=== PATIENT | male | born 1980 | race Caucasian/White ===

== ENCOUNTER 2025-03-26 09:31 | Outpatient (CLI) | payer MEDICAID, SELFPAY ==
--- OUTSIDE RECORDS SUMMARY | 2025-02-05 13:00 | XMS_ITS | Encounter Summary ---
Author Organization [facility] Address [address] [place] [address] Care Team Providers Care Inspector Assembly Name Role Phone Anthony Linares MD Primary Care Provider [phone] Reason for Visit * Reason Comments Med Refill Encounter Details Date Type Department Care Team (Late st Contact Info) Description 02/05/2025 1:00 PM EDT Office Visit [facility] [address] [place] [address] [place] [address] Anthony Linares MD [address] [place] [address] [place] [address] Type 2 diabetes mellitus with microalbuminuria, without long-term current use of insulin (Primary Dx); Primary hypertension; Chronic renal failure, stage 3b; Cigarette smoker; Mixed hyperlipidemia; Overweight (BMI 25.0-29.9); Folate deficiency; Other dietary vitamin B12 deficiency anemia; Recurrent major depressive disorder, in partial remission; Seasonal allergic rhinitis due to pollen; Encounter for general adult medical examination with abnormal findings Social History Tobacco Use Types Packs/Day Years Used Date Smoking Tobacco: Former Cigarettes 1 - 01/30/2018 Smokeless Tobacco: Never Tobacco Cessation:Counseling Given: No Alcohol Use Standard Drinks/Week Comments Never 0 (1 standard drink = 0.6 oz pur e alcohol) PHQ-2 Answer Date Recorded Retired PHQ-9: Brief Depression Severity Measure Score 0 08/03/2023 PHQ-2 Answer Date Recorded Patient Health Questionnaire-2 Score 0 02/05/2025 Sex and Gender Information Value Date Recorded Sex Assigned at Not on file Legal Sex Male 5:23 PM EDT Gender Identity Not on file Sexual Orientation Not on file documented as of this encounter Last Filed Vital Signs Vital Sign Reading Time Taken Comments Blood Pressure 116/82 02/05/2025 1:02 PM EDT Pulse 66 02/05/2025 1:02 PM EDT Temperature 36.8 C (98.2 F) 02/05/2025 1:02 PM EDT Respiratory Rate - - Oxygen Saturation 98% 02/05/2025 1:02 PM EDT Inhaled Oxygen Concentration - - Weight 97.1 kg (214 lb) 02/05/2025 1:02 PM EDT Height 185.4 cm (6' 1 ) 02/05/2025 1:02 PM EDT Body Mass Index 28.23 02/05/2025 1:02 PM EDT documented in this encounter Functional Status documented as of this encounter Progress Notes * Anthony Linares MD - 02/05/2025 1:21 PM EDTAssociated Problem(s): Type 2 diabetes mellitus with microalbuminuria, without long-term current use of insulin Hemoglobin A1c through his plastic parts fabricator on 11/21/2024 at at 7.0% which was improved compared toprevious 7.6 on 08/07/2024, 02/07/2024 at 6.6, prior to that at endocrinology clinic 09/21/2023 at 5.7%, with mi 08/03/2023 at 6.3%, with endocrinology on 03/19/2023 with hemoglobin A1c 5.7% 09/18/2022 with hemoglobin A1c of 5.8%, repeated 11/02/2022 good at 6.1%. I discussed he could get comorbid benefit from his renal dysfunction and diabetes, and initiated on 08/03/2023 Jardiance 10 mg daily, and we stopped glipizide to 25 mg daily to avoid hypoglycemia. Keep regular follow-up with his endocrinology with last appointment 11/21/2024 and planned May 2025 6-month follow-up visit. Monitor feetdaily, he is due for diabetic retinopathy evaluation, he plans to schedule at soonest convenience. * Anthony Linares MD - 02/05/2025 1:20 PM EDTAssociated Problem(s): Seasonal allergic rhinitis due to pollen Seasonal pattern, with responsiveness [id number] antihistamine and nasal steroid historically. With some previous breakthrough symptoms we had discussed adding montelukast but he declined the need, still some spring triggers as of 02/05/2025 but he feels he is doing well with antihistamine andnasal steroid additional benefit of saline spray, nasal flushing, consider [place] pot. Advise concerns. * Anthony Linares MD - 02/05/2025 1:19 PM EDTAssociated Problem(s): Recurrent major depressive disorder, in partial remission Longstanding pattern for which he previously followed with nurse practitioner Usha Boucher on regimen of medication, including Seroquel with benefit. * Anthony Linares MD - 02/05/2025 1:19 PM EDTAssociated Problem(s): Primary hypertension Current losartan/HCTZ 50/12.5 mg daily, metoprolol 25 mg twice daily. With bradycardia noted previously, metoprolol decreased to 25 mg at 1/2 tablet twice daily deviously. Of note, previous amlodipine 5 mg discontinued November 2017. Monitor blood pressure. EKG nonconcerning and normal 08/07/2024, unchanged compared to 08/03/2023, 05/05/2022. Continue monitoring blood pressure more regularly. No new concerns as of 02/05/2025. * Anthony Linares MD - 02/05/2025 1:19 PM EDTAssociated Problem(s): Overweight (BMI 25.0-29.9) BMI in the 28 range, ongoing recommendations of benefits healthy diet, exercise and weight loss formultiple medical comorbidities. * Anthony Linares MD - 02/05/2025 1:19 PM EDTAssociated Problem(s): Other dietary vitamin B12 deficiency anemia Vitamin B12 level low with blood work 02/01/2023 at 120 with lower limit of normal 232, patient presenting replacement in 02/07/2024 normalized at 623. Recheck pending with blood work 02/05/2025, management per results. * Anthony Linares MD - 02/05/2025 1:18 PM EDTAssociated Problem(s): Mixed hyperlipidemia 02/07/2024 total cholesterol 132, triglycerides 317, HDL 25, LDL 57. Comparison 02/01/2023 total cholesterol 112, triglycerides 275, HDL 23, LDL 46, 02/11/2022 total cholesterol 107, triglycerides 144, HDL 27, LDL 51, 01/27/2021 with total cholesterol 147, triglycerides 262, HDL 26, LDL 69, 05/14/2017 with total cholesterol 155, triglycerides 306, HDL 31, LDL 63. Notable was admitted to the hospital with LDL greater than 400 and triglycerides greater than 800 on admission in November 2013. Continue atorvastatin 80 mg daily, fenofibrate 145 mg daily. Continue healthy diet and exercise, weight loss. Recheck with cholesterol 02/05/2025, management per results. * Anthony Linares MD - 02/05/2025 1:17 PM EDTAssociated Problem(s): Folate deficiency History of same. Normal folate with blood work 02/01/2023 at greater than 20, continues normal at 15on 02/07/2024. Monitor with blood work 02/05/2025 * Anthony Linares MD - 02/05/2025 1:17 PM EDTAssociated Problem(s): Cigarette smoker Ongoing smoking, but continues at only 1-2 cigarettes/day, with use of Chantix as of late 2022 withequivocal benefit. He continues smoking the same and he understands ongoing risk with even low level smoking. If he desires Chantix, patches or Wellbutrin to help cessation I will be happy to provideat convenience. * Anthony Linares MD - 02/05/2025 1:17 PM EDTAssociated Problem(s): Chronic renal failure, stage 3b Follows with nephrology historically not seen for at least a couple years. 02/07/2024 blood work with worsening creatinine 2.00, GFR 42, again verified as elevated 08/07/2024 with creatinine 2.03 and GFR 41. As he is still not seeing [facility] I went ahead and referred and he has now pending follow-up visit with Dr. Donis Way on 03/09/2025. Devious creatinines 02/01/2023 creatinine 1.63, GFR 54, previous creatinine at 1.4 and GFR 60 on 02/11/2022. Initiation of Jardiance 10 mg daily as of 08/03/2023 for comorbid benefit of diabetes and also renal dysfunction. Caution renal toxic medications. Will check kidney function again with his blood work 02/05/2025, management per results * Anthony Linares MD - 02/05/2025 1:00 PM EDT Images from the original note were not included. Follow Up Office Visit Date: 02/05/2025 Patient Name: Darien Jean : 1980 Chief Complaint: Chief Complaint Patient presents with Med Refill History of Present Illness: Darien Jean is a 44 y.o. male who is here today to follow up with medical problems. In the interim, couple months ago on 11/21/2024 he saw his plastic parts fabricator at where he had a hemoglobin A1c improved to 7.0% he continued his regimen of medicine unchanged with plan to follow-up 6 months. Checking his sugar since then he runs in the low to mid 100s when he checks which is not daily. Regarding cholesterol, taking medicine as prescribed. Try to make efforts eat healthy be active and is down a little bit better the last few months. Blood pressure checked infrequently when he does check it is in the 110s over 70s. No lightheadedness or dizziness. Still smoking 1 or 2 cigarettes a day understanding benefits of full cessation and he will consider. He has pending follow-up appointment with nephrology at on 03/09/2025. He continues taking folate and vitamin [id number].. Subjective Review of Systems: Review of Systems I have reviewed the patients family history, social history, past medical history, past surgical history and have updated it as appropriate. Medications: Current Outpatient Medications: atorvastatin (LIPITOR) 80 MG tablet, Take 1 tablet by mouth once daily, Disp: 90 tablet, Rfl: 3 cetirizine (zyrTEC) 10 MG tablet, Take 1 tablet by mouth once daily, Disp: 30 tablet, Rfl: 0 Cholecalciferol (Vitamin D) 50 MCG (2000 UT) capsule, Take 1 capsule by mouth once daily, Disp: 30 capsule, Rfl: 3 clopidogrel (PLAVIX) 75 MG tablet, Take 1 tablet by mouth once daily, Disp: 90 tablet, Rfl: 0 Cobalamin Combinations (Vitamin D60-Xtyqh Acid) 500-400 MCG tablet, Take 2 tablets by mouth Daily.,Disp: 60 tablet, Rfl: 3 empagliflozin (Jardiance) 10 MG tablet tablet, Take 1 tablet by mouth once daily, Disp: 90 tablet, Rfl: 1 fenofibrate (TRICOR) 145 MG tablet, Take 1 tablet by mouth once daily, Disp: 90 tablet, Rfl: 2 folic acid (FOLVITE) 400 MCG tablet, Take 1 tablet by mouth once daily, Disp: 60 tablet, Rfl: 2 losartan-hydrochlorothiazide (HYZAAR) 100-25 MG per tablet, Take 1 tablet by mouth once daily, Disp: 90 tablet, Rfl: 3 metFORMIN ER (GLUCOPHAGE-XR) 500 MG 24 hr tablet, Take 2 tablets by mouth 2 (Two) Times a Day., Disp: , Rfl: metoprolol tartrate (LOPRESSOR) 25 MG tablet, TAKE 1 TABLET BY MOUTH TWICE DAILY; APPOINTMENT REQUIRED FOR FUTURE REFILLS, Disp: 180 tablet, Rfl: 1 vitamin B-12 (CYANOCOBALAMIN) 500 MCG tablet, Take 1 tablet by mouth once daily, Disp: 20 tablet, Rfl: 3 Allergies: Allergies Allergen Reactions Loratadine Unknown (See Comments) loopy Objective Physical Exam: Please see above Vital Signs: Vitals: 02/05/25 1302 BP: 116/82 BP Location: Right arm Patient Position: Sitting Cuff Size: Adult Pulse: 66 Temp: 98.2 ??F (36.8 ??C) TempSrc: Temporal SpO2: 98% Weight: 97.1 kg (214 lb) Height: 185.4 cm (73 ) PainSc: 0-No pain Facility age limit for growth %antoni is 20 years. Body mass index is 28.23 kg/m??. Physical Exam Constitutional: General: He is not in acute distress. Appearance: Normal appearance. He is not ill-appearing, toxic-appearing or diaphoretic. HENT: Right Ear: Ear canal and external ear normal. Left Ear: Ear canal and external ear normal. Ears: Comments: Mild fluid behind the TMs bilaterally, otherwise clear Nose: Rhinorrhea present. Comments: Mild clear rhinorrhea, pale mucosa Mouth/Throat: Mouth: Mucous membranes are moist. Pharynx: Oropharynx is clear. No oropharyngeal exudate or posterior oropharyngeal erythema. Neck: Vascular: No carotid bruit. Comments: No thyroid enlargement, no thyroid nodules Cardiovascular: Rate and Rhythm: Normal rate and regular rhythm. Pulses: Normal pulses. Heart sounds: Normal heart sounds. No murmur heard. No friction rub. No gallop. Pulmonary: Effort: Pulmonary effort is normal. No respiratory distress. Breath sounds: Normal breath sounds. No stridor. No wheezing. Abdominal: General: Abdomen is flat. Bowel sounds are normal. There is no distension. Palpations: Abdomen is soft. Tenderness: There is no abdominal tenderness. There is no guarding or rebound. Musculoskeletal: Cervical back: Neck supple. No tenderness. Right lower leg: No edema. Left lower leg: No edema. Lymphadenopathy: Cervical: No cervical adenopathy. Skin: General: Skin is warm and dry. Capillary Refill: Capillary refill takes less than 2 seconds. Findings: No rash. Neurological: General: No focal deficit present. Mental Status: He is alert and oriented to person, place, and time. Mental status is at baseline. Psychiatric: Mood and Affect: Mood normal. Behavior: Behavior normal. Thought Content: Thought content normal. Procedures Results: Labs: Hemoglobin A1C Date Value Ref Range Status 11/21/2024 7.0 <5.7% Non-Diabetic % Final 03/13/2022 5.8 Final TSH Date Value Ref Range Status 02/07/2024 3.550 0.450 - 4.500 uIU/mL Final Imaging: No valid procedures specified. Patient's (Body mass index is 28.23 kg/m??.) indicates that they are overweight (BMI 25-29.9) with health related conditions that include hypertension, diabetes mellitus, and dyslipidemias . Weight is improving with lifestyle modifications. BMI is is above average; BMI management plan is completed.We discussed low calorie, low carb based diet program, portion control, increasing exercise, and joining a fitness center or start home based exercise program. Smoking Cessation: 3-10 mintues spent counseling Will try to cut down Vaccine Counseling: Assessment / Plan Assessment/Plan: Diagnoses and all orders for this visit: 1. Type 2 diabetes mellitus with microalbuminuria, without long-term current use of insulin (Primary) Assessment & Plan: Hemoglobin A1c through his plastic parts fabricator on 11/21/2024 at at 7.0% which was improved compared toprevious 7.6 on 08/07/2024, 02/07/2024 at 6.6, prior to that at endocrinology clinic 09/21/2023 at 5.7%, with mi 08/03/2023 at 6.3%, with endocrinology on 03/19/2023 with hemoglobin A1c 5.7% 09/18/2022 with hemoglobin A1c of 5.8%, repeated 11/02/2022 good at 6.1%. I discussed he could get comorbid benefit from his renal dysfunction and diabetes, and initiated on 08/03/2023 Jardiance 10 mg daily, and we stopped glipizide to 25 mg daily to avoid hypoglycemia. Keep regular follow-up with his endocrinology with last appointment 11/21/2024 and planned May 2025 6-month follow-up visit. Monitor feetdaily, he is due for diabetic retinopathy evaluation, he plans to schedule at soonest convenience. Orders: - Microalbumin / Creatinine Urine Ratio - Urine, Clean Catch; Future - Microalbumin / Creatinine Urine Ratio - Urine, Clean Catch 2. Primary hypertension Assessment & Plan: Current losartan/HCTZ 50/12.5 mg daily, metoprolol 25 mg twice daily. With bradycardia noted previously, metoprolol decreased to 25 mg at 1/2 tablet twice daily deviously. Of note, previous amlodipine 5 mg discontinued November 2017. Monitor blood pressure. EKG nonconcerning and normal 08/07/2024, unchanged compared to 08/03/2023, 05/05/2022. Continue monitoring blood pressure more regularly. No new concerns as of 02/05/2025. 3. Chronic renal failure, stage 3b Assessment & Plan: Follows with [facility] historically not seen for at least a couple years. 02/07/2024 blood work with worsening creatinine 2.00, GFR 42, again verified as elevated 08/07/2024 with creatinine 2.03 and GFR 41. As he is still not seeing [facility] I went ahead and referred and he has now pending follow-up visit with Dr. Donis Way on 03/09/2025. Devious creatinines 02/01/2023 creatinine 1.63, GFR 54, previous creatinine at 1.4 and GFR 60 on 02/11/2022. Initiation of Jardiance 10 mg daily as of 08/03/2023 for comorbid benefit of diabetes and also renal dysfunction. Caution renal toxic medications. Will check kidney function again with his blood work 02/05/2025, management per results 4. Cigarette smoker Assessment & Plan: Ongoing smoking, but continues at only 1-2 cigarettes/day, with use of Chantix as of late 2022 withequivocal benefit. He continues smoking the same and he understands ongoing risk with even low level smoking. If he desires Chantix, patches or Wellbutrin to help cessation I will be happy to provideat convenience. 5. Mixed hyperlipidemia Assessment & Plan: 02/07/2024 total cholesterol 132, triglycerides 317, HDL 25, LDL 57. Comparison 02/01/2023 total cholesterol 112, triglycerides 275, HDL 23, LDL 46, 02/11/2022 total cholesterol 107, triglycerides 144, HDL 27, LDL 51, 01/27/2021 with total cholesterol 147, triglycerides 262, HDL 26, LDL 69, 05/14/2017 with total cholesterol 155, triglycerides 306, HDL 31, LDL 63. Notable was admitted to the hospital with LDL greater than 400 and triglycerides greater than 800 on admission in November 2013. Continue atorvastatin 80 mg daily, fenofibrate 145 mg daily. Continue healthy diet and exercise, weight loss. Recheck with cholesterol 02/05/2025, management per results. 6. Overweight (BMI 25.0-29.9) Assessment & Plan: BMI in the 28 range, ongoing recommendations of benefits healthy diet, exercise and weight loss formultiple medical comorbidities. 7. Folate deficiency Assessment & Plan: History of same. Normal folate with blood work 02/01/2023 at greater than 20, continues normal at 15on 02/07/2024. Monitor with blood work 02/05/2025 Orders: - Folate; Future - Folate 8. Other dietary vitamin B12 deficiency anemia Assessment & Plan: Vitamin B12 level low with blood work 02/01/2023 at 120 with lower limit of normal 232, patient presenting replacement in 02/07/2024 normalized at 623. Recheck pending with blood work 02/05/2025, management per results. Orders: - Vitamin B12; Future - Vitamin B12 9. Recurrent major depressive disorder, in partial remission Assessment & Plan: Longstanding pattern for which he previously followed with nurse practitioner Usha Boucher on regimen of medication, including Seroquel with benefit. 10. Seasonal allergic rhinitis due to pollen Assessment & Plan: Seasonal pattern, with responsiveness [id number] antihistamine and nasal steroid historically. With some previous breakthrough symptoms we had discussed adding montelukast but he declined the need, still some spring triggers as of 02/05/2025 but he feels he is doing well with antihistamine andnasal steroid additional benefit of saline spray, nasal flushing, consider [place] pot. Advise concerns. 11. Encounter for general adult medical examination with abnormal findings - CBC & Differential; Future - Comprehensive Metabolic Panel; Future - UA / M With / Rflx Culture([facility] ONLY) - Urine, Clean Catch - Lipid Panel; Future - TSH Rfx On Abnormal To Free T4; Future - TSH Rfx On Abnormal To Free T4 - Lipid Panel - Comprehensive Metabolic Panel - CBC & Differential Follow Up: Return in about 6 months (around 08/07/2025) for Annual physical. Anthony Linares MD [facility] * Joseline Lee MA - 02/05/2025 1:00 PM EDT Venipuncture Blood Specimen Collection Venipuncture performed in right arm by Joseline Lee MA with good hemostasis. Patient tolerated theprocedure well without complications. 02/05/25 Joseline Lee MA documented in this encounter Plan of Treatment Not on file documented as of this encounter Procedures Procedure Name Priority Date/Time Associated Diagnosis Comments TSH RFX ON ABNORMAL TO FREE T4 Routine 02/05/2025 1:16 PM EDT Encounter for general adult medical examination with abnormal findings UA/M W/RFLX CULTURE ([facility] ONLY) Routine 02/05/2025 1:16 PM EDT Encounter for general adult medical examination with abnormal findings ~MICROSCOPIC EXAMINATION Routine 02/05/2025 1:16 PM EDT MICROALBUMIN / CREATININE URINE RATIO Routine 02/05/2025 1:16 PM EDT Type 2 diabetes mellitus with microalbuminuria, without long-term current use of insulin CBC AND DIFFERENTIAL Routine 02/05/2025 1:16 PM EDT Encounter for general adult medical examination with abnormal findings FOLATE Routine 02/05/2025 1:16 PM EDT Folate deficiency VITAMIN B12 Routine 02/05/2025 1:16 PM EDT Other dietary vitamin B12 deficiency anemia LIPID PANEL Routine 02/05/2025 1:16 PM EDT Encounter for general adult medical examination with abnormal findings COMPREHENSIVE METABOLIC PANEL Routine 02/05/2025 1:16 PM EDT Encounter for general adult medical examination with abnormal findings documented in this encounter Results * Microscopic Examination - (02/05/2025 1:16 PM EDT) WBC, UA None seen 0 - 5 /hpf [facility] RBC, UA None seen 0 - 2 /hpf [facility] Epithelial Cells (non renal) None seen 0 - 10 /hpf [facility] Casts None seen None seen /lpf [facility] Bacteria, UA None seen None seen/Few [facility] 02/05/2025 1:16 PM EDT 02/05/2025 Comment:Urine Release to [facility] (AMBULATORY) - 02/06/2025 3:07 PM EDT Performed at: 01 - [address] [id number] Maintenance Shop Technician: Siva Valdivia PhD, Phone: [phone] us Anthony Linares MD URINE ORDERABLES Final Result Performing Organization Address City/[facility]/ZIP Co de Phone Number [facility] ([facility]) [address] [place] [address], [facility] [address] [place] [id number], * Vitamin B12 (02/05/2025 1:16 PM EDT) [facility] Vitamin B-12 736 232 - 1,245 pg/mL [facility] Blood 02/05/2025 1:1 6 PM EDT 02/05/2025 Comment:Blood Release to [facility] ([facility]) - 02/06/2025 1:07 PM EDT Performed at: [address] [place] [id number] Maintenance Shop Technician: Siva Valdivia PhD, Phone: [phone] us Anthony Linares MD LAB BLOOD ORDERABLES Final Resul t Performing Organization Address City/[facility]/ZIP Co de Phone Number [facility] (AMBULATORY) [address] [place] [address], [place] [phone] [facility] [address] [place] [address], * Folate (02/05/2025 1:16 PM EDT) [facility] Folate 16.2 >3.0 ng/mL [facility] Comment: A serum folate concentration of less than 3.1 ng/mL is considered to represent clinical deficiency. Blood 02/05/2025 1:16 PM EDT 02/05/2025 Comment:Blood Release to [facility] - 02/06/2025 1:07 PM EDT Performed at: [facility] - [facility] [address] [place] [id number] Maintenance Shop Technician: Siva Valdivia PhD, Phone: [phone] us Anthony Linares MD LAB BLOOD ORDERABLES Final Resul t Performing Organization Address City/[facility]/ZIP Co de Phone Number [facility] (AMBULATORY) [address] [place] [address], [place] [phone] [facility] [address] [place] [address], [place] [phone] * Microalbumin / Creatinine Urine Ratio - Urine, Clean Catch (02/05/2025 1:16 PM EDT) [facility] Creatinine, Urine 87.7 Not Estab. mg/dL [facility] Microalbumin, Urine <3.0 Not Estab. ug/mL [facility] Microalbumin/Cre atinine Ratio <3 0 - 29 mg/g creat [facility] Comment: Normal: 0 - 29 Moderately increased: 30 - 300 Severely increased: >300 Urine Urine specimen obtained by clean catch procedure / Unknown 02/05/2025 1:16 PM EDT 02/05/2025 Comment:Urine Release to [facility] (AMBULATORY) - 02/06/2025 3:07 PM EDT Performed at: 01 - [facility] [address] [place] [id number] Maintenance Shop Technician: Siva Valdivia PhD, Phone: [phone] us Anthony Linares MD URINE ORDERABLES Final Result Performing Organization Address City/[facility]/ZIP Co de Phone Number [facility] ([facility]) [address] [place] [address], [place] [phone] [facility] [address] [place] [address], [place] [phone] * TSH Rfx On Abnormal To Free T4 (02/05/2025 1:16 PM EDT) Pathologist [facility] TSH 1.790 0.450 - 4.500 uIU/mL [facility] Blood 02/05/2025 1:16 PM EDT 02/05/2025 Comment:Blood Release to pat i [facility] ([facility]) - 02/06/2025 1:07 PM EDT Performed at: 01 - [address] [id number] Maintenance Shop Technician: Siva Valdivia PhD, Phone: [phone] us Anthony Linares MD LAB BLOOD ORDERABLES Final Resul t [facility] (AMBULATORY) [address] [place] [address], [place] [phone] [facility] [address] [place] [address], [place] [phone] * (ABNORMAL) Lipid Panel (02/05/2025 1:16 PM EDT) Total Cholesterol 107 100 - 199 mg/dL [facility] Triglycerides 216(H) 0 - 149 mg/dL [facility] HDL Cholesterol 24(L) >39 mg/dL [facility] VLDL Cholesterol Jevon 35 5 - 40 mg/dL [facility] LDL Chol Calc (NIH) 48 0 - 99 mg/dL [facility] Blood 02/05/2025 1:16 PM EDT 02/05/2025 Comment:Blood Release to pat i [facility] (AMBULATORY) - 02/06/2025 1:07 PM EDT Performed at: 01 - [address] [id number] Maintenance Shop Technician: Siva Valdivia PhD, Phone: [phone] us Anthony Linares MD LAB BLOOD ORDERABLES Final Resul t Performing Organization Address City/[facility]/ZIP Co de Phone Number [facility] [address] [place] [address], [place] [phone] [facility] [address] [place] [address], [place] [phone] * (ABNORMAL) UA / M With / Rflx Culture([facility] ONLY) - Urine, Clean Catch (02/05/2025 1:16 PM EDT) Specific Alexander, UA 1.025 1.005 - 1.030 [facility] pH, UA 6.0 5.0 - 7.5 [facility] Color, UA Yellow Yellow [facility] Appearance, UA Clear Clear [facility] Leukocytes, UA Negative Negative [facility] Protein Negative Negative/Tra ce [facility] Glucose, UA 3+(A) Negative [facility] Ketones Negative Negative [facility] Blood, UA Negative Negative [facility] Bilirubin, UA Negative Negative [facility] Urobilinogen, UA 0.2 0.2 - 1.0 mg/dL [facility] Nitrite, UA Negative Negative [facility] Microscopic Examination Comment [facility] Comment:Microscopic follows if indicated. Microscopic Examination See below: [facility] Comment:Microscopic was francie cated and was performed. Urinalysis Reflex Comment [facility] Comment:This specimen will n ot reflex to a Urine Culture. Urine Urine specimen obtained by clean catch procedure / Unknown 02/05/2025 1:16 PM EDT 02/05/2025 Comment:Urine Release to [facility] Polina [facility] (AMBULATORY) - 02/06/2025 3:07 PM EDT Performed at: 01 - [address] [id number] Maintenance Shop Technician: Siva Valdivia PhD, Phone: [phone] us Anthony Linares MD URINE ORDERABLES Final Result [facility] (AMBULATORY) [address] [place] [address], [place] [phone] [facility] [address] [place] [address], [place] [phone] * (ABNORMAL) Comprehensive Metabolic Panel (02/05/2025 1:16 PM EDT) Glucose 157(H) 70 - 99 mg/dL [facility] BUN 20 6 - 24 mg/dL [facility] Creatinine 1.88(H) 0.76 - 1.27 mg/dL [facility] EGFR Result 45(L) >59 mL/min/1.7 3 [facility] BUN/Creatinine Ratio 11 9 - 20 [facility] Sodium 136 134 - 144 mmol/L [facility] Potassium 4.2 3.5 - 5.2 mmol/L [facility] Chloride 99 96 - 106 mmol/L [facility] Total CO2 20 20 - 29 mmol/L [facility] Calcium 9.5 8.7 - 10.2 mg/dL [facility] Total Protein 7.4 6.0 - 8.5 g/dL [facility] Albumin 4.7 4.1 - 5.1 g/dL [facility] Globulin 2.7 1.5 - 4.5 g/dL [facility] Total Bilirubin 0.3 0.0 - 1.2 mg/dL [facility] Alkaline Phosphatase 30(L) 44 - 121 IU/L [facility] AST (SGOT) 15 0 - 40 IU/L [facility] ALT (SGPT) 22 0 - 44 IU/L [facility] Blood 02/05/2025 1:16 PM EDT 02/05/2025 Comment:Blood Release to [facility] (AMBULATORY) - 02/06/2025 1:07 PM EDT Performed at: 01 - [address] [id number] Maintenance Shop Technician: Siva Valdivia PhD, Phone: [phone] us Anthony Linares MD LAB BLOOD ORDERABLES Final Resul t [facility] [address] [place] [address], [facility] [address] [place] [address], * CBC & Differential (02/05/2025 1:16 PM EDT) WBC 4.3 3.4 - 10.8 x10E3/uL [facility] RBC 4.86 4.14 - 5.80 x10E6/uL [facility] Hemoglobin 15.2 13.0 - 17.7 g/dL [facility] Hematocrit 46.9 37.5 - 51.0 % [facility] MCV 97 79 - 97 fL [facility] MCH 31.3 26.6 - 33.0 pg [facility] MCHC 32.4 31.5 - 35.7 g/dL [facility] RDW 14.1 11.6 - 15.4 % [facility] Platelets 212 150 - 450 x10E3/uL [facility] Neutrophil Rel % 54 Not Estab. % [facility] Lymphocyte Rel % 30 Not Estab. % [facility] Monocyte Rel % 8 Not Estab. % [facility] Eosinophil Rel % 7 Not Estab. % [facility] Basophil Rel % 1 Not Estab. % [facility] Neutrophils Absolute 2.3 1.4 - 7.0 x10E3/uL [facility] Lymphocytes Absolute 1.3 0.7 - 3.1 x10E3/uL [facility] Monocytes Absolute 0.3 0.1 - 0.9 x10E3/uL [facility] Eosinophils Absolute 0.3 0.0 - 0.4 x10E3/uL [facility] Basophils Absolute 0.1 0.0 - 0.2 x10E3/uL [facility] Immature Granulocyte Rel % 0 Not Estab. % [facility] Immature Grans Absolute 0.0 0.0 - 0.1 x10E3/uL [facility] Blood 02/05/2025 1:16 PM EDT 02/05/2025 Comment:Blood Release to pat i Polina [facility] ([facility]) - 02/06/2025 1:07 PM EDT Performed at: - [address] [id number] Maintenance Shop Technician: Siva Valdivia PhD, Phone: [phone] Anthony Linares MD LAB BLOOD ORDERABLES Final Resul t [facility] ([facility]ORY) [address] [place] [address] [place] [address], [place] [phone] [facility] [address] [place] [address], documented in this encounter Visit Diagnoses Diagnosis Type 2 diabetes mellitus with microalbuminuria, without long-term current use of insulin- Primary Primary hypertension Unspecified essential hypertension Chronic renal failure, stage 3b Cigarette smoker Tobacco use disorder Mixed hyperlipidemia Overweight (BMI 25.0-29.9) Overweight Folate deficiency Other B-complex deficiencies Other dietary vitamin B12 deficiency anemia Recurrent major depressive disorder, in partial remission Seasonal allergic rhinitis due to pollen Encounter for general adult medical examination with abnormal findings documented in this encounter Care Teams Inspector Assembly Relationship Specialty Start Date End Date Anthony Linares MD [address] [place] [address] PCP - General Internal Medicine 05/04/22 documented as of this encounter
--- OUTSIDE RECORDS SUMMARY | 2025-03-26 09:37 | XMS_ITS | Encounter Summary ---
Author Organization [facility] Address [address] [place] [address] Care Team Providers Care Launching Pad Mechanic Name Role Phone Anthony Linares MD Primary Care Provider Encounter Details Date Type Department Care Team (Latest Contact Info) Description 02/05/2025 Travel Social History Tobacco Use Types Packs/Day Years Used Date Smoking Tobacco: Former Cigarettes 1 - 01/30/2018 Smokeless Tobacco: Never Alcohol Use Standard Drinks/Week Comments Never 0 [...] on file documented as of this encounter Functional Status documented as of this encounter Plan of Treatment Not on file documented as of this encounter Visit Diagnoses Not on filedocumented in this encounter Care Teams Launching Pad Mechanic Relationship Specialty Start Date End Date Anthony Linares MD [address] [place] [address] [place] [address] PCP - General Internal Medicine 05/04/22 documented as of this encounter
--- OUTSIDE RECORDS SUMMARY | 2025-03-26 09:38 | XMS_ITS | Clinical Summary ---
Author Organization [facility] Address [address] [place] [address] Care Team Providers Care Manager Of Training Name Role Phone Anthony Linares MD Primary Care Provider [phone] Allergies Active Allergy Reactions Criticality Noted Date Comments Loratadine Unknown (See Comments) Low 03/20/2018 loopy Medications metFORMIN ER (GLUCOPHAGE-XR) 500 MG 24 hr tablet Take 2 tablets by mouth 2 (Two) Times a Day. 02/28/20 22 Active Cobalamin Combinations (Vitamin O70-Ixvov Acid) 500-400 MCG tabletIndicatio ns:Vitamin B12 deficiency,Dorinda te deficiency Take 2 tablets by mouth Daily. 60 tablet 3 11/03/19 23 Active cetirizine (zyrTEC) 10 MG tabletIndicatio ns:Seasonal allergic rhinitis due to pollen Take 1 tablet by mouth once daily 30 tablet 08/25/19 25 Active atorvastatin (LIPITOR) 80 MG tablet Take 1 tablet by mouth once daily 90 tablet 3 09/22/19 25 Active losartan-hydroc hlorothiazide (HYZAAR) 100-25 MG per tabletIndicatio ns:Primary hypertension Take 1 tablet by mouth once daily 90 tablet 3 10/10/19 25 Active metoprolol tartrate (LOPRESSOR) 25 MG tabletIndicatio ns:Hypertension , unspecified type TAKE 1 TABLET BY MOUTH TWICE DAILY; APPOINTMENT REQUIRED FOR FUTURE REFILLS 180 tablet 1 12/19/19 25 Active folic acid (FOLVITE) 400 MCG tablet Take 1 tablet by mouth once daily 60 tablet 2 01/02/20 25 Active fenofibrate (TRICOR) 145 MG tablet Take 1 tablet by mouth once daily 90 tablet 2 01/02/20 25 Active vitamin B-12 (CYANOCOBALAMIN ) 500 MCG tablet Take 1 tablet by mouth once daily 20 tablet 3 01/13/20 25 Active Cholecalciferol (Vitamin D) 50 MCG (2000 UT) capsule Take 1 capsule by mouth once daily 30 capsule 3 01/20/20 25 Active Jardiance 10 MG tablet tabletIndicatio ns:Chronic renal failure, stage 2 (mild),Type 2 diabetes mellitus with microalbuminuri a, without long-term current use of insulin Take 1 tablet by mouth once daily 90 tablet 03/23/20 25 Active clopidogrel (PLAVIX) 75 MG tablet Take 1 tablet by mouth once daily 90 tablet 03/23/20 25 Active empagliflozin (Jardiance) 10 MG tablet tabletIndicatio ns:Chronic renal failure, stage 2 (mild),Type 2 diabetes mellitus with microalbuminuri a, without long-term current use of insulin Take 1 tablet by mouth once daily 90 tablet 1 09/25/19 25 025 Discontinued clopidogrel (PLAVIX) 75 MG tablet Take 1 tablet by mouth once daily 90 tablet 12/26/19 25 025 Discontinued Active Problems Problem Noted Date Diagnosed Date Encounter for general adult medical examination with abnormal findings 02/01/2023 Assessment & Plan (08/07/2024 2:14 PM EST): Screening blood work Lasix 2023 with HIV and hepatitis C virus screening - 02/01/2023. Will be due colonoscopy at age 46. Tdap up-to-date 03/02/2017. Assessment & Plan (02/01/2023 5:51 PM EDT): Screening blood work ordered 02/01/2023. Tdap up-to-date 03/02/2017. Need for vaccination 11/02/2022 Assessment & Plan (08/03/2023 5:31 PM EST): Flu vaccine administered. Folate deficiency 11/02/2022 Assessment & Plan (02/05/2025 1:17 PM EDT): History of same. Normal folate with blood work 02/01/2023 at greater than 20, continues normal at 15 on 02/07/2024. Monitor with blood work 02/05/2025 Assessment & Plan (08/07/2024 2:16 PM EST): History of same. Normal folate with blood work 02/01/2023 at greater than 20, continues normal at 15 on 02/07/2024. Monitor yearly. Assessment & Plan (02/07/2024 12:09 PM EDT): History of same. Normal folate with blood work 02/01/2023 at greater than 20. Recheck with blood work 02/07/2024. Assessment & Plan (02/01/2023 5:47 PM EDT): History of same, folate level ordered with blood work for monitoring. Assessment & Plan (11/02/2022 5:10 PM EDT): Related to anemia assessment, notable for folic acid low at 2.9 on 02/13/2022, with patient initiating combination vitamin B12/folic acid 500/400 at 2 tablets daily. I believe he has not been taking regular and have sent in another refill Other dietary vitamin B12 deficiency anemia 10/21 Assessment & Plan (02/05/2025 1:19 PM EDT): Vitamin B12 level low with blood work 02/01/2023 at 120 with lower limit of normal 232, patient presenting replacement in 02/07/2024 normalized at 623. Recheck pending with blood work 02/05/2025, management per results. Assessment & Plan (08/07/2024 2:15 PM EST): Vitamin B12 level low with blood work 02/01/2023 at 120 with lower limit of normal 232, patient presenting replacement in 02/07/2024 normalized at 623. Monitor yearly. Assessment & Plan (02/07/2024 12:10 PM EDT): Vitamin B12 level low with blood work 02/01/2023 at 120 with lower limit of normal 232, patient has resumed replacement. Recheck pending with 02/07/2024 blood work. Assessment & Plan (08/03/2023 5:31 PM EST): Vitamin B12 level low with blood work 02/01/2023 at 120 with lower limit of normal 232, patient has resumed replacement. Assessment & Plan (02/01/2023 5:49 PM EDT): As diagnosed previous, B12 level checked with blood work. Assessment & Plan (11/02/2022 5:12 PM EDT): Anemia pattern is diagnosed 02/11/2022 with hemoglobin 13.5, hematocrit 39.3 and MCV 104.8 with ultimately low folic acid level 2.9 and vitamin B12 at 111 with initiation of vitamin B12 and folic acid at the time. Other anemia evaluation on 02/11/2022 reassuring and negative including negative for iron deficiency. Recheck a vitamin B12 and folic acid at follow-up visit where we will obtain blood work Seasonal allergic rhinitis due to pollen 022 Assessment & Plan (02/05/2025 1:20 PM EDT): Seasonal pattern, with responsiveness [id number] antihistamine and nasal steroid historically. With some previous breakthrough symptoms we had discussed adding montelukast but he declined the need, still some spring triggers as of 02/05/2025 but he feels he is doing well with antihistamine and nasal steroid additional benefit of saline spray, nasal flushing, consider Lincoln pot. Advise concerns. Assessment & Plan (08/07/2024 2:17 PM EST): Seasonal pattern, with responsiveness [id number] antihistamine and nasal steroid historically. Nonetheless he is having some breakthrough symptoms as of 08/07/2024. Recommendation is to add montelukast 10 mg tablet daily to his regimen. He does not want to do so yet but will call if he changes his mind. Additional benefit of saline spray, nasal flushing, consider Lincoln pot. Call if he wants to consider adding montelukast to the regimen. Advise concerns. Assessment & Plan (02/07/2024 12:11 PM EDT): Seasonal pattern, good response [id number] antihistamine, nasal steroid. Patient declines need for prescriptions. We could consider adding Singulair in future. Additional benefit of saline spray, nasal flushing. Advise concerns. Assessment & Plan (02/01/2023 5:50 PM EDT): Seasonal pattern, good response [id number] antihistamine, nasal steroid. We could consider adding Singulair in future. Additional benefit of saline spray, nasal flushing. Advise concerns. Assessment & Plan (11/02/2022 5:14 PM EDT): Seasonal flare, good response to [id number]-qimtuxo antihistamine and nasal steroid. We could add Singulair in future as necessary. Additional benefit of saline spray, nasal flushing Assessment & Plan (05/05/2022 10:48 AM EDT): Good response to as needed use of hkie-dvz-byskarc antihistamine and nasal steroid. We could add Singulair in the future if necessary. Advised concerns. Type 2 diabetes mellitus wit h microalbuminuria, without long-term current use of insulin 05/05/2022 Overview (05/05/2022): diagnosis November 2013. Followed with endocrinology. Assessment & Plan (02/05/2025 1:21 PM EDT): Hemoglobin A1c through his garageman on 11/21/2024 at at 7.0% which was improved compared to previous 7.6 on 08/07/2024, 02/07/2024 at 6.6, prior to that at endocrinology clinic 09/21/2023 at 5.7%, with nv 08/03/2023 at 6.3%, with [facility] on 03/19/2023 with hemoglobin A1c 5.7% [...] planned May 2025 6-month follow-up visit. Monitor feet daily, he is due for diabetic retinopathy evaluation, he plans to schedule at soonest convenience. Assessment & Plan (08/07/2024 2:18 PM EST): Past due for hemoglobin A1c, I do not have a qsemv-it-qtza testing today but will obtain with venous blood work, management per results. Hemoglobin A1c most recently to myself 02/07/2024 at 6.6, prior to that at endocrinology clinic 09/21/2023 at 5.7%, with nv 08/03/2023 at 6.3%, with endocrinology on 03/19/2023 with hemoglobin A1c 5.7% 09/18/2022 with hemoglobin A1c of 5.8%, repeated 11/02/2022 good at 6.1%. I discussed he could get comorbid benefit from his renal dysfunction and diabetes, and initiated on 08/03/2023 Jardiance 10 mg daily, and we stopped glipizide to 25 mg daily to avoid hypoglycemia. Continue their management which includes metformin. Keep regular follow-up with his endocrinology with pending appointment apparently November 2023 as they are having trouble getting in and. Monitor feet daily, he is due for diabetic retinopathy evaluation, she plans to schedule this year. Assessment & Plan (02/07/2024 12:13 PM EDT): Hemoglobin A1c at endocrinology clinic 09/21/2023 at 5.7%. Previous with nv 08/03/2023 at 6.3%, with endocrinology on 03/19/2023 with hemoglobin A1c 5.7% 09/18/2022 with hemoglobin A1c of 5.8%, repeated 11/02/2022 good at 6.1%. I discussed he could get comorbid benefit from his renal dysfunction and diabetes, and initiated on 08/03/2023 Jardiance 10 mg daily, and we stopped glipizide to 25 mg daily to avoid hypoglycemia. Continue their management which includes metformin. Keep regular follow-up with his endocrinology with pending appointment 03/21/2024. Monitor feet daily, he is due for diabetic retinopathy evaluation. He will schedule. Assessment & Plan (08/03/2023 5:33 PM EST): Hemoglobin A1c today modest increase to 6.3%, previously at last visit with endocrinology on 03/19/2023 with hemoglobin A1c 5.7% 09/18/2022 with hemoglobin A1c of 5.8%, repeated 11/02/2022 good at 6.1%. I discussed he could get comorbid benefit from his renal dysfunction and diabetes, he would like to initiate Jardiance 10 mg daily, as such we will stop the glyburide 2.5 mg daily to avoid hypoglycemia. Continue their management which includes metformin. Keep regular follow-up with his endocrinology with pending appointment 09/21/2023. Monitor feet daily, he is due for diabetic retinopathy evaluation. He will schedule. Assessment & Plan (02/01/2023 5:52 PM EDT): Follows with endocrinology with last appointment 09/18/2022 with hemoglobin A1c of 5.8%, repeated 11/02/2022 good at 6.1%. I will defer repeat to their follow-up visit 03/19/2023. Continue their management which includes metformin and low-dose glipizide. Keep healthy diet, exercise. Assessment & Plan (11/02/2022 5:15 PM EDT): Follows with endocrinology, last appointment 09/18/2022 with a hemoglobin A1c of 5.8%, repeat today slightly increased to 6.1%. He is not checking his glucose measurements and I reinforced importance of continue to do so. Continue management as per [facility] which includes metformin and low-dose glipizide. I reinforced importance of healthy diet, activity keep 03/19/2023 follow-up with endocrinology. Assessment & Plan (05/05/2022 9:44 AM EDT): Follows with endocrinology, last appointment 03/13/2022 with a hemoglobin A1c of 5.8%. No management change at that time, he is doing very well and I reinforced importance of healthy diet, activity keep 09/18/2022 follow-up with endocrinology. Mixed hyperlipidemia 05/05/2022 Assessment & Plan (02/05/2025 1:19 PM EDT): 02/07/2024 total cholesterol 132, triglycerides 317, HDL [...] Recheck with cholesterol 02/05/2025, management per results. Assessment & Plan (08/07/2024 2:15 PM EST): 02/07/2024 02/01/2023 total cholesterol 112, triglycerides 275, HDL 23, LDL 46. Comparison 02/11/2022 total cholesterol 107, triglycerides 144, HDL 27, LDL 51, 01/27/2021 with total cholesterol 147, triglycerides 262, HDL 26, LDL 69, 05/14/2017 with total cholesterol 155, triglycerides 306, HDL 31, LDL 63. Notable was admitted to the hospital with LDL greater than 400 and triglycerides greater than 800 on admission in November 2013. Continue atorvastatin 80 mg daily. Continue healthy diet and exercise, weight loss. Monitor cholesterol at minimum yearly. Assessment & Plan (02/07/2024 12:10 PM EDT): 02/01/2023 total cholesterol 112, triglycerides 275, HDL 23, LDL 46. Comparison 02/11/2022 total cholesterol 107, triglycerides 144, HDL 27, LDL 51, 01/27/2021 with total cholesterol 147, triglycerides 262, HDL 26, LDL 69, 05/14/2017 with total cholesterol 155, triglycerides 306, HDL 31, LDL 63. Notable was admitted to the hospital with LDL greater than 400 and triglycerides greater than 800 on admission in November 2013. Continue atorvastatin 80 mg daily. Continue healthy diet and exercise, weight loss. Recheck cholesterol pending 02/07/2024. Assessment & Plan (08/03/2023 5:30 PM EST): 02/01/2023 total cholesterol 112, triglycerides 275, HDL 23, LDL 46. Comparison 02/11/2022 total cholesterol 107, triglycerides 144, HDL 27, LDL 51, 01/27/2021 with total cholesterol 147, triglycerides 262, HDL 26, LDL 69, 05/14/2017 with total cholesterol 155, triglycerides 306, HDL 31, LDL 63. Notable was admitted to the hospital with LDL greater than 400 and triglycerides greater than 800 on admission in November 2013. Continue atorvastatin 80 mg daily. Continue healthy diet and exercise, weight loss. Monitor cholesterol at minimum yearly. Assessment & Plan (02/01/2023 5:49 PM EDT): 02/11/2022 total cholesterol 107, triglycerides 144, HDL 27, LDL 51. Comparison 01/27/2021 with total cholesterol 147, triglycerides 262, HDL 26, LDL 69, 05/14/2017 with total cholesterol 155, triglycerides 306, HDL 31, LDL 63. Notable was admitted to the hospital with LDL greater than 400 and triglycerides greater than 800 on admission in November 2013. Continue atorvastatin 80 mg daily. Continue healthy diet and exercise, weight loss. Recheck cholesterol pending with blood work 02/01/2023. Assessment & Plan (11/02/2022 5:11 PM EDT): 02/11/2022 total cholesterol 107, triglycerides 144, HDL 27, LDL 51. Comparison 01/27/2021 with total cholesterol 147, triglycerides 262, HDL 26, LDL 69, 05/14/2017 with total cholesterol 155, triglycerides 306, HDL 31, LDL 63. Notable was admitted to the hospital with LDL greater than 400 and triglycerides greater than 800 on admission in November 2013. Continue atorvastatin 80 mg daily. Continue healthy diet and exercise, weight loss. Recheck cholesterol at follow-up. Assessment & Plan (05/05/2022 10:48 AM EDT): 01/27/2021 total cholesterol 147, triglycerides 262, HDL 26, LDL 69. Comparison 05/14/2017 with total cholesterol 155, triglycerides 306, HDL 31, LDL 63, 05/14/2017 total cholesterol 155, triglycerides 306, HDL 31, LDL 63. Notable was admitted to the hospital with LDL greater than 400 and triglycerides greater than 800 on admission in November 2013. Continue atorvastatin 80 mg daily. Continue healthy diet and exercise, weight loss. Recheck cholesterol pending. Primary hypertension 05/05/2022 Assessment & Plan (02/05/2025 1:19 PM EDT): Current losartan/HCTZ 50/12.5 mg daily, metoprolol 25 mg twice daily. With bradycardia noted previously, metoprolol decreased to 25 mg at 1/2 tablet twice daily deviously. Of note, previous amlodipine 5 mg discontinued November 2017. Monitor blood pressure. EKG nonconcerning and normal 08/07/2024, unchanged compared to 08/03/2023, 05/05/2022. Continue monitoring blood pressure more regularly. No new concerns as of 02/05/2025. Assessment & Plan (08/07/2024 2:16 PM EST): Current losartan/HCTZ 50/12.5 mg daily, metoprolol 25 mg twice daily. With bradycardia noted previously, metoprolol decreased to 25 mg at 1/2 tablet twice daily deviously. Of note, previous amlodipine 5 mg discontinued November 2017. Monitor blood pressure. EKG nonconcerning and normal 08/07/2024, unchanged compared to 08/03/2023, 05/05/2022. Continue monitoring blood pressure more regularly. Assessment & Plan (02/07/2024 12:11 PM EDT): Current losartan/HCTZ 50/12.5 mg daily, metoprolol 25 mg twice daily. With bradycardia noted previously, metoprolol decreased to 25 mg at 1/2 tablet twice daily deviously. Of note, previous amlodipine 5 mg discontinued November 2017. Monitor blood pressure. EKG nonconcerning 08/03/2023, unchanged compared to 05/05/2022. Continue monitoring blood pressure more regularly. Assessment & Plan (08/03/2023 5:32 PM EST): Current losartan/HCTZ 50/12.5 mg daily, metoprolol 25 mg twice daily. With bradycardia noted previously, metoprolol decreased to 25 mg at 1/2 tablet twice daily deviously. Of note, previous amlodipine 5 mg discontinued November 2017. Monitor blood pressure. EKG nonconcerning 08/03/2023, unchanged compared to 05/05/2022. Continue monitoring blood pressure more regularly. Assessment & Plan (02/01/2023 5:50 PM EDT): Current losartan/HCTZ 50/12.5 mg daily, metoprolol 25 mg twice daily. With bradycardia noted previously, metoprolol decreased to 25 mg at 1/2 tablet twice daily deviously. Of note, previous amlodipine 5 mg discontinued November 2017. Monitor blood pressure. EKG nonconcerning other than some modest bradycardia at 05/05/2022 visit with decrease as noted above. Continue monitoring blood pressure more regularly. Assessment & Plan (11/02/2022 5:13 PM EDT): Blood pressure modestly elevated as of 01/14/2020, but no lightheadedness, dizziness, chest pain or palpitation. Current losartan/HCTZ 50/12.5 mg daily, metoprolol 25 mg twice daily. With bradycardia noted previously, metoprolol decreased to 25 mg at 1/2 tablet twice daily Of note, previous amlodipine 5 mg discontinued November 2017. Monitor blood pressure. EKG nonconcerning other than some modest bradycardia at 05/05/2022 visit with decrease as noted above. Assessment & Plan (05/05/2022 10:53 AM EDT): Blood pressure modestly elevated as of 01/14/2020, but no lightheadedness, dizziness, chest pain or palpitation. Current losartan/HCTZ 50/12.5 mg daily, metoprolol 25 mg twice daily. With bradycardia on EKG, decrease metoprolol to 25 mg to half tablet twice daily. Of note, previous amlodipine 5 mg discontinued November 2017. Monitor blood pressure. EKG nonconcerning other than some modest bradycardia at 05/05/2022 visit with decrease as noted above. History of CVA (cerebrovascular accident) 2021 Overview (05/05/2022): nvolving the right frontal lobe and basal ganglia in November 2013, with cerebral angiogram on 12/08/2013 showing 80-90% stenosis of the right MCA M1 segment with decreased feeling in the distal MCA territories and retrograde filling from the [employer] territory. Assessment & Plan (08/07/2024 2:14 PM EST): History of ischemic stroke involving the right frontal lobe and basal ganglia, with associated cerebral angiogram 12/08/2013 showing 80-90% stenosis in the right MCA M1 segment. Normal transthoracic echocardiogram at that time with stroke workup. He continues on Plavix, baby aspirin. Following with neurology, but referred to [facility] neurosurgeon, Dr. Gillette, who saw him on 03/15/2019 regarding moyamoya disease, having performed a diagnostic cerebral angiogram on 01/23/2019, and Diamox study, and he did not feel revascularization was warranted, recommending to maximize medical therapy. No recent follow-up with neurology, on appropriate risk reducing medications. Assessment & Plan (02/07/2024 12:10 PM EDT): History of ischemic stroke involving the right frontal lobe and basal ganglia, with associated cerebral angiogram 12/08/2013 showing 80-90% stenosis in the right MCA M1 segment. Normal transthoracic echocardiogram at that time with stroke workup. He continues on Plavix, baby aspirin. Following with neurology, but referred to [facility] neurosurgeon, Dr. Gillette, who saw him on 03/15/2019 regarding moyamoya disease, having performed a diagnostic cerebral angiogram on 01/23/2019, and Diamox study, and he did not feel revascularization was warranted, recommending to maximize medical therapy. No recent follow-up with [facility] neurology, on appropriate risk reducing medications. Assessment & Plan (08/03/2023 5:30 PM EST): History of ischemic stroke involving the right frontal lobe and basal ganglia, with associated cerebral angiogram 12/08/2013 showing 80-90% stenosis in the right MCA M1 segment. Normal transthoracic echocardiogram at that time with stroke workup. He continues on Plavix, baby aspirin. Following with neurology, but referred to [facility] neurosurgeon, Dr. Gillette, who saw him on 03/15/2019 regarding moyamoya disease, having performed a diagnostic cerebral angiogram on 01/23/2019, and Diamox study, and he did not feel revascularization was warranted, recommending to maximize medical therapy. No recent follow-up with [facility] neurology, on appropriate risk reducing medications. Assessment & Plan (02/01/2023 5:48 PM EDT): History of ischemic stroke involving the right frontal lobe and basal ganglia, with associated cerebral angiogram 12/08/2013 showing 80-90% stenosis in the right MCA M1 segment. Normal transthoracic echocardiogram at that time with stroke workup. He continues on Plavix, baby aspirin. Following with [facility] neurology, but referred to [facility] neurosurgeon, Dr. Gillette, who saw him on 03/15/2019 regarding moyamoya disease, having performed a diagnostic cerebral angiogram on 01/23/2019, and Diamox study, and he did not feel revascularization was warranted, recommending to maximize medical therapy. No recent follow-up with [facility] neurology, recommend resumption, although he is on appropriate risk reducing medications. Assessment & Plan (05/14/2022 2:53 PM EDT): History of ischemic stroke involving the right frontal lobe and basal ganglia, with associated cerebral angiogram 12/08/2013 showing 80-90% stenosis in the right MCA M1 segment. Normal transthoracic echocardiogram at that time with stroke workup. He continues on Plavix, baby aspirin. Following with neurology, but referred to [facility] neurosurgeon, Dr. Gillette, who saw him on 03/15/2019 regarding moyamoya disease, having performed a diagnostic cerebral angiogram on 01/23/2019, and Diamox study, and he did not feel revascularization was warranted, recommending to maximize medical therapy. No recent follow-up with [facility] neurology, recommend resumption, although he is on appropriate risk reducing medications. Recurrent major depressive disorder, in partial remission 05/05/2022 Assessment & Plan (02/05/2025 1:19 PM EDT): Longstanding pattern for which he previously followed with nurse practitioner Usha Boucher on regimen of medication, including Seroquel with benefit. Assessment & Plan (08/07/2024 2:16 PM EST): Longstanding pattern for which he previously followed with nurse practitioner Usha Boucher on regimen of medication, including Seroquel with benefit. Assessment & Plan (02/07/2024 12:11 PM EDT): Longstanding pattern for which he follows with nurse practitioner Usha Boucher on regimen of medication, including Seroquel with benefit. Continue unchanged, keep follow-up Assessment & Plan (05/05/2022 10:41 AM EDT): Longstanding pattern for which he follows with nurse practitioner Usha Boucher on regimen of medication, including Seroquel with benefit. Continue unchanged, keep follow-up Cigarette smoker 05/05/2022 Overview (05/05/2022): CIGARETTES Assessment & Plan (02/05/2025 1:17 PM EDT): Ongoing smoking, but continues at only 1-2 cigarettes/day, with use of Chantix as of late 2022 with equivocal benefit. He continues smoking the same and he understands ongoing risk with even low level smoking. If he desires Chantix, patches or Wellbutrin to help cessation I will be happy to provide at convenience. Assessment & Plan (08/07/2024 2:13 PM EST): Ongoing smoking, but continues at only 1-2 cigarettes/day, with use of Chantix as of late 2022 with equivocal benefit. He continues smoking the same and he understands ongoing risk with even low level smoking. Assessment & Plan (02/07/2024 12:08 PM EDT): Ongoing smoking, but continues at only 2 cigarettes/day, with use of Chantix as of late 2022 with equivocal benefit. He continues smoking the same and he understands ongoing risk with even low level smoking. Assessment & Plan (08/03/2023 5:29 PM EST): Ongoing smoking, but continues at only 2 cigarettes/day, he is using Chantix still with attempt to pursue cessation I recommended setting a quit date. He understands ongoing risk with even low level smoking. Assessment & Plan (02/01/2023 5:48 PM EDT): Ongoing smoking at decreased down to 2 cigarettes/day which I have congratulated on the decreased amount but ultimately reinforced importance of full cessation ultimately. He understands ongoing risk with even low level smoking. Assessment & Plan (11/02/2022 5:08 PM EDT): Ongoing smoking at about 1/2 pack/day, potentially interested in cessation at this time and would be interested in Chantix. Prescription provided with starter pack and multiple month follow-up packs. I reinforced challenges of ongoing cessation, benefits of cessation. Assessment & Plan (05/05/2022 10:38 AM EDT): Ongoing smoking 1/2 pack/day which is improved to previous 3/4 pack/day. We spoke regarding pros and cons of cessation and patient is agreeable to pursue cessation although he has not yet set a quit date. Previous use of Chantix, possibly beneficial, but not interested in retrying at this time. He will advise if he wants to try nicotine patch. Chronic renal failure, stage 3b 05/05/2022 Assessment & Plan (02/05/2025 1:17 PM EDT): Follows with [facility] historically not seen [...] his blood work 02/05/2025, management per results Assessment & Plan (08/07/2024 2:13 PM EST): Follows with [facility] historically not seen for at least a couple years. 02/07/2024 blood work with worsening creatinine 2.00, GFR 42. Plan is to refer back to [facility], patient prefers to do it himself but has not yet obtained. 02/01/2023 creatinine 1.63, GFR 54, previous creatinine at 1.4 and GFR 60 on 02/11/2022. Initiation of Jardiance 10 mg daily as of 08/03/2023 for comorbid benefit of diabetes and also renal dysfunction. Caution renal toxic medications. Recheck another BMP today 08/07/2024 and if continues elevated similar to from January 2024 plan to refer back to [facility] to be reassessed. Assessment & Plan (02/07/2024 12:07 PM EDT): Follows with [facility] historically not seen for at least a couple years. 02/01/2023 creatinine 1.63, GFR 54, previous creatinine at 1.4 and GFR 60 on 02/11/2022. Initiation of Jardiance 10 mg daily as of 08/03/2023 for comorbid benefit of diabetes and also renal dysfunction. Caution renal toxic medications. Recheck blood work pending 02/07/2024. Assessment & Plan (08/03/2023 5:29 PM EST): Follows with [facility] historically not seen for at least a couple years. 02/01/2023 creatinine 1.63, GFR 54, previous creatinine at 1.4 and GFR 60 on 02/11/2022. Plan to initiate Jardiance 10 mg daily as of 08/03/2023 for comorbid benefit of diabetes and also renal dysfunction. Caution renal toxic medications. Assessment & Plan (02/01/2023 5:47 PM EDT): Follows with [facility], generally doing better the last years with most recent creatinine at 1.4 and GFR 60 on 02/11/2022. Repeat pending. Caution renal toxic medications. Assessment & Plan (11/02/2022 5:07 PM EDT): Follows with [facility], generally this has been doing better over the last few years with recent creatinine and GFR of 1.4 and 60 respectively on 02/11/2022. Caution renal toxic medications. Repeat planned at follow-up Assessment & Plan (05/05/2022 9:48 AM EDT): Follows with [facility], generally this has been doing better over the last few years with recent creatinine and GFR of 1.4 and 60 respectively on 02/11/2022. Overweight (BMI 25.0-29.9) 05/05/2022 Assessment & Plan (02/05/2025 1:19 PM EDT): BMI in the 28 range, ongoing recommendations of benefits healthy diet, exercise and weight loss for multiple medical comorbidities. Assessment & Plan (08/07/2024 2:15 PM EST): Ongoing recommendations of benefits healthy diet, exercise and weight loss for multiple medical comorbidities. Assessment & Plan (02/07/2024 12:11 PM EDT): Ongoing recommendations of benefits healthy diet, exercise and weight loss for multiple medical comorbidities. Assessment & Plan (08/03/2023 5:31 PM EST): Ongoing recommendations of benefits healthy diet, exercise and weight loss for multiple medical comorbidities. Assessment & Plan (02/01/2023 5:49 PM EDT): Ongoing recommendations of benefits healthy diet, exercise and weight loss for multiple medical comorbidities. Assessment & Plan (11/02/2022 5:13 PM EDT): Modestly overweight, recommend importance of healthy diet, exercise and further weight loss. Assessment & Plan (05/05/2022 10:49 AM EDT): Modestly overweight with BMI in the 28 range, continue to recommend healthy diet, exercise and benefits of modest weight loss especially with his multiple comorbid conditions. Resolved Problems Problem Noted Date Diagnosed Date Resolved Date Vitamin B12 deficiency 11/02/2022 06/12 /2023 Assessment & Plan (02/01/2023 5:50 PM EDT): Level monitored with blood work which is pending. Assessment & Plan (11/02/2022 5:10 PM EDT): Related to anemia assessment, notable addition to folic acid deficiency of low vitamin B12 at 111 on 02/13/2022, with initiation of combination vitamin B12/folic acid 500/400 at 2 tablets daily. I believe he has not been taking regular and have sent in another refill Encounters Date Type Department Care Team Description 03/22/2025 Refill [facility] [address] [place] [address] [place] [address] Anthony Linares MD Chronic renal failure, stage 2 (mild); Type 2 diabetes mellitus with microalbuminuria, without long-term current use of insulin 02/06/2025 Results Follow-Up [facility] [place] [address] Anthony Linares MD 02/05/2025 1:00 PM EDT Office Visit [facility] [place] [address] Anthony Linares MD Type 2 diabetes mellitus with microalbuminuria, without long-term current use of insulin (Primary Dx); Primary hypertension; Chronic renal failure, stage 3b; Cigarette smoker; Mixed hyperlipidemia; Overweight (BMI 25.0-29.9); Folate deficiency; Other dietary vitamin B12 deficiency anemia; Recurrent major depressive disorder, in partial remission; Seasonal allergic rhinitis due to pollen; Encounter for general adult medical examination with abnormal findings 02/05/2025 Travel 01/19/2025 Refill [facility] [place] [address] Anthony Linares MD 01/12/2025 Refill [facility] [place] [address] Anthony Linares MD 12/29/2024 Refill [facility] [address] [place] [address] Anthony Linares MD from Last 3 Months Immunizations Immunization Administration Dates Next Due Fluzone >6mos 08/07/2024,05/18/2016 Fluzone (or Fluarix & Flulaval for VFC) >6mos Fluzone Quad >6mos (Multi-dose) 05/05/2022 Pneumococcal Conjugate 20-Valent (PCV20) 023 Pneumococcal Polysaccharide (PPSV23) 03/02/2017 Tdap 03/02/2017 Family History Medical History Relation Name Comments No Known Problems Father No Known Problems Maternal Grandfather No Known Problems Maternal Grandmother No Known Problems Mother No Known Problems Paternal Grandfather No Known Problems Paternal Grandmother Relation Name Status Comments Father Maternal Grandfather Maternal Grandmother Mother Paternal Grandfather Paternal Grandmother Social History Tobacco Use Types Packs/Day Years [...] on file Sexual Orientation Not on file Last Filed Vital Signs Vital Sign Reading Time Taken Comments Blood Pressure 116/82 02/05/2025 1:02 PM EDT Pulse 66 02/05/2025 1:02 PM EDT Temperature 36.8 C (98.2 F) 02/05/2025 1:02 PM EDT Respiratory Rate 18 02/07/2024 11:43 AM EDT Oxygen Saturation 98% 02/05/2025 1:02 PM EDT Inhaled Oxygen Concentration - - Weight 97.1 kg (214 lb) 02/05/2025 1:02 PM EDT Height 185.4 cm (6' 1 ) 02/05/2025 1:02 PM EDT Body Mass Index 28.23 02/05/2025 1:02 PM EDT Plan of Treatment Health Maintenance Due Date Last Done Comments Hepatitis B (1 of 3 - 19+ 3- dose series) 2000 DIABETIC EYE EXAM 03/23/2024 03/23/2023 (Winston danielson-Reported (Performed Externally)) COVID-19 Vaccine (1 - 2023-2 5 season) 2024 DIABETIC FOOT EXAM 02/06/2025 02/07/2024, 0 02/07/2024, 02/07/2024, Additional history exists HEMOGLOBIN A1C 05/23/2025 11/21/2024, 04/0 08/2024, 08/07/2024, Additional history exists INFLUENZA VACCINE 05/23/2025 08/07/2024, , 05/05/2022, Additional history exists ANNUAL PHYSICAL 08/07/2025 08/07/2024 LIPID PANEL 02/05/2026 02/05/2025, 01/21, 02/01/2023, Additional history exists URINE MICROALBUMIN-CREATININ E RATIO (uACR) 02/05/2026 02/05/2025 TDAP/TD VACCINES (2 - Td or Tdap) 03/02/2027 017 Pneumococcal Vaccine 0-49 Completed 11/02/2022, 06/2017 HEPATITIS C SCREENING Completed 02/01/2023 Procedures Procedure Name Priority Date/Time Associated Diagnosis Comments CBC AND DIFFERENTIAL Routine 02/05/2025 1:16 PM EDT Encounter for general adult medical examination with abnormal findings ~MICROSCOPIC EXAMINATION Routine 02/05/2025 1:16 PM EDT COMPREHENSIVE METABOLIC PANEL Routine 02/05/2025 1:16 PM EDT Encounter for general adult medical examination with abnormal findings LIPID PANEL Routine 02/05/2025 1:16 PM EDT Encounter for general adult medical examination with abnormal findings TSH RFX ON ABNORMAL TO FREE T4 Routine 02/05/2025 1:16 PM EDT Encounter for general adult medical examination with abnormal findings MICROALBUMIN / CREATININE URINE RATIO Routine 02/05/2025 1:16 PM EDT Type 2 diabetes mellitus with microalbuminuria, without long-term current use of insulin FOLATE Routine 02/05/2025 1:16 PM EDT Folate deficiency VITAMIN B12 Routine 02/05/2025 1:16 PM EDT Other dietary vitamin B12 deficiency anemia UA/M W/RFLX CULTURE ([facility] ONLY) Routine 02/05/2025 1:16 PM EDT Encounter for general adult medical examination with abnormal findings HEMOGLOBIN A1C Routine 08/07/2024 1:54 PM EST Type 2 diabetes mellitus with microalbuminuria, without long-term current use of insulin HEPATITIS C ANTIBODY Routine 02/01/2023 2:40 PM EDT Encounter for general adult medical examination with abnormal findings from Last 3 Months or Most Recently Relevant to Health Maintenance Results * TSH Rfx On Abnormal To Free T4 (02/05/2025 1:16 PM EDT) TSH 1.790 0.450 - 4.500 uIU/mL [facility] Blood 02/05/2025 1:16 PM EDT 02/05/2025 Comment:Blood Release to [facility] jordy Fish [facility] (AMBULATORY) - 02/06/2025 1:07 PM EDT Performed at: 01 - [address] [id number] [employer] Business Representative: Siva Valdivia PhD, Phone: [phone] us Anthony Linares MD LAB BLOOD ORDERABLES Final Resul t [facility] (AMBULATORY) [address] [place] [address], [facility] [address] [place] [address], * (ABNORMAL) UA / M With / Rflx Culture([facility] ONLY) - Urine, Clean Catch (02/05/2025 1:16 PM EDT) Specific [place], UA 1.025 1.005 - 1.030 [facility] [...] 1:16 PM EDT 02/05/2025 Comment:Urine Release to [facility] jordy Fish [facility] (AMBULATORY) - 02/06/2025 3:07 PM EDT Performed at: 01 - [address] [id number] [employer] Business Representative: Siva Valdivia PhD, Phone: [phone] Anthony Linares MD URINE ORDERABLES Final Result [facility] (AMBULATORY) [address] [place] [address], [facility] [address] [place] [address], [place] [phone] * Microscopic Examination - (02/05/2025 1:16 PM EDT) Pathologist [facility] WBC, UA None seen 0 - 5 /hpf [facility] RBC, UA None seen 0 - 2 /hpf [facility] Epithelial Cells (non renal) None seen 0 - 10 /hpf [facility] Casts None seen None seen /lpf [facility] Bacteria, UA None seen None seen/Few [facility] 02/05/2025 1:16 PM EDT 02/05/2025 Comment:Urine Release to [facility] (AMBULATORY) - 02/06/2025 3:07 PM EDT Performed at: 01 - [facility] [address] [place] [id number] [employer] Business Representative: Siva Valdivia PhD, Phone: [phone] Anthony Linares MD URINE ORDERABLES Final Result Performing Organization Address City/[facility]/ZIP Co de Phone Number [facility] [address] [place] [address], [place] [phone] [facility] [address] [place] [address], [place] [phone] * Microalbumin / Creatinine Urine Ratio - Urine, Clean Catch (02/05/2025 1:16 PM EDT) Pathologist [facility] Creatinine, Urine 87.7 Not Estab. mg/dL [facility] Microalbumin, Urine <3.0 Not Estab. ug/mL [facility] Microalbumin/Cre atinine Ratio <3 0 - 29 mg/g creat [facility] Comment: Normal: 0 - 29 Moderately increased: 30 - 300 Severely increased: >300 Urine Urine specimen obtained by clean catch procedure / Unknown 02/05/2025 1:16 PM EDT 02/05/2025 Comment:Urine Release to [facility] (AMBULATORY) - 02/06/2025 3:07 PM EDT Performed at: - [facility] [address] [place] [id number] [employer] Business Representative: Siva Valdivia PhD, Phone: [phone] us Anthony Linares MD URINE ORDERABLES Final Result Performing Organization Address City/[facility]/ZIP Co de Phone Number [facility] (AMBULATORY) [address] [place] [address], [place] [phone] [facility] [address] [place] [address], [place] [phone] * CBC & Differential (02/05/2025 1:16 PM EDT) [facility] WBC 4.3 3.4 - 10.8 x10E3/uL [facility] [...] 1:16 PM EDT 02/05/2025 Comment:Blood Release to naina Fish [facility] (AMBULATORY) - 02/06/2025 1:07 PM EDT Performed at: - [address], [place], [place] [id number] [employer] Business Representative: Siva Valdivia PhD, Phone: [phone] us Anthony Linares MD LAB BLOOD ORDERABLES Final Resul t Performing Organization Address [facility]/ZIP Co de Phone Number [facility] (AMBULATORY) [address] [place] [address], [facility] [address] [place] [address], [place] [phone] * Folate (02/05/2025 1:16 PM EDT) [facility] Folate 16.2 >3.0 ng/mL [facility] Comment: A serum folate concentration of less than 3.1 ng/mL is considered to represent clinical deficiency. Blood 02/05/2025 1:16 PM EDT 02/05/2025 Comment:Blood Release to [facility] (AMBULATORY) - 02/06/2025 1:07 PM EDT Performed at: [address] [id number] [employer] Business Representative: Siva Valdivia PhD, Phone: [phone] us Anthony Linares MD LAB BLOOD ORDERABLES Final Resul t Performing Organization Address [facility]/ZIP Co de Phone Number [facility] [address] [place] [address], [place] [phone] [facility] [address] [place] [address], [place] [phone] * Vitamin B12 (02/05/2025 1:16 PM EDT) [facility] Vitamin B-12 736 232 - 1,245 pg/mL [facility] Blood 02/05/2025 1:16 PM EDT 02/05/2025 Comment:[facility] - 02/06/2025 1:07 PM EDT Performed at: [address] [place] [id number] [employer] Business Representative: Siva Valdivia PhD, Phone: [phone] us Anthony Linares MD LAB BLOOD ORDERABLES Final Resul t Performing Organization Address City/[facility]/ZIP Co de Phone Number [facility] [address] [place] [address], [facility] [address] [place] [address], * (ABNORMAL) Lipid Panel (02/05/2025 1:16 PM EDT) Total Cholesterol 107 100 - 199 mg/dL [facility] Triglycerides 216(H) 0 - 149 mg/dL [facility] HDL Cholesterol 24(L) >39 mg/dL [facility] VLDL Cholesterol Jevon 35 5 - 40 mg/dL [facility] LDL Chol Calc (NIH) 48 0 - 99 mg/dL [facility] Blood 02/05/2025 1:16 PM EDT 02/05/2025 Comment:Blood Release to [facility] Polina [facility] (AMBULATORY) - 02/06/2025 1:07 PM EDT Performed at: - [facility] [id number] [employer] Business Representative: Siva Valdivia PhD, Phone: [phone] Anthony Linares MD LAB BLOOD ORDERABLES Final Resul t [facility]Aftercad SoftwareFA[facility] ([facility]) [address] [place] [address], [facility] [address] [place] [address], * (ABNORMAL) Comprehensive Metabolic Panel (02/05/2025 1:16 [...] 1:16 PM EDT 02/05/2025 Comment:Blood Release to [facility] (AMBULATORY) - 02/06/2025 1:07 PM EDT Performed at: [address] [id number] [employer] Business Representative: Siva Valdivia PhD, Phone: [phone] Anthony Linares MD LAB BLOOD ORDERABLES Final Resul t [facility] (AMBULATORY) [address] [place], [place] [id number], [facility] [address] [place], [place] [id number], * (ABNORMAL) Hemoglobin A1c (08/07/2024 1:54 PM EST) Pathologist [facility] Hemoglobin A1C 7.6(H) 4.8 - 5.6 % [facility] Comment: Prediabetes: 5.7 - 6.4 Diabetes: >6.4 Glycemic control for adults with diabetes: <7.0 Blood 08/07/2024 1:54 PM EST 08/07/2024 Comment:Blood Release to [facility] (AMBULATORY) - 08/08/2024 8:07 AM EST Performed at: [address] [id number] [employer] Business Representative: Svia Valdivia PhD, Phone: [phone] us Anthony Linares MD LAB BLOOD ORDERABLES Final Resul t Performing Organization Address City/[facility]/ZIP Co de Phone Number [facility] [address] [place] [address], [place] [phone] [facility] [address] [place] [address], * Hepatitis C Antibody (02/01/2023 2:40 PM EDT) [facility] Hep C Virus Ab Non Reactive Non Reactive [facility] Comment: HCV antibody alone does not differentiate between previously resolved infection and active infection. Equivocal and Reactive HCV antibody results should be followed up with an HCV RNA test to support the diagnosis of active HCV infection. Blood Structure of right upper limb / Unknown 02/01/2023 2:40 PM EDT 02/02/2023 Comment:Blood Release to [facility] jordy Fish [facility] (AMBULATORY) - 02/02/2023 10:07 AM EDT Performed at: - [facility] [address] [place], [place] [id number] [employer] Business Representative: Siva Valdivia PhD, Phone: [phone] us Anthony Linares MD LAB BLOOD ORDERABLES Final Resul t Performing Organization Address [facility] Co de Phone Number [facility] ([facility]) [address] [place] [address], [place] [phone] [facility] [address] [place] [address], from Last 3 Months or Most Recently Relevant to Health Maintenance Insurance [employer] [place] [address] Care Teams Manager Of Training Relationship Specialty Start Date End Date Anthony Linares MD [address] [place] [address] PCP - General Internal Medicine 05/04/22
--- OUTSIDE RECORDS SUMMARY | 2025-03-26 09:38 | XMS_ITS | Encounter Summary ---
Author Organization Healthcare Address [address] [place] [address] Care Team Providers Care Cuff Folder Name Role Phone Anthony Linares MD Primary Care Provider [phone] Reason for Visit * Reason Comments Med Refill Encounter Details Date Type Department Care Team (Late Contact Info) Description 09/06[facility] [address] [place] [address] Viviane Avina, DENTAL INTER[employer]HIP [address] [facility] [address] [place] [address] Social History Tobacco Use Types Packs/Day Years Used Date Smoking Tobacco: Former Alcohol Use Standard Drinks/Week Comments Yes 0 (1 standard drink = 0.6 oz pur e alcohol) Sex and Gender Information Value Date Recorded Sex Assigned at Not on file Legal Sex Male 6:33 PM EDT Gender Identity Not on file Sexual Orientation Not on file COVID-19 Exposure Response Date Recorded In the last month, have you been in contact with someone who was confirmed or suspected to have Coronavirus / COVID-19? No / Unsure 09/09/2021 11:03 AM EST documented as of this encounter Plan of Treatment Upcoming Encounters Date Type Department Care Team (Late st Contact Info) Description 03/30/2025 10:00 AM EDT Office Visit [facility] [address] [place] [address] Zoey Downing, DENTAL INTERNSHIP [address] [facility] [address] [place] [address] 06/12/2025 11:20 AM EDT Office Visit [facility] Endocrinology [address] [place] [address] (1), Bobo Tian Fellow documented as of this encounter Visit Diagnoses Not on filedocumented in this encounter Care Teams Cuff Folder Relationship Specialty Start Date End Date Anthony Linares MD [address] [place], [place] [id number] PCP - General 01/03/21 documented as of this encounter
--- OUTSIDE RECORDS SUMMARY | 2025-03-26 09:38 | XMS_ITS | Encounter Summary ---
Author Organization [facility] Address [address] [place] [address] Care Team Providers Care Mother Helper Name Role Phone Anthony Linares MD Primary Care Provider [phone] Reason for Visit * Reason Onset Date Comments Med Refill 11/01/2023 Encounter Details Date Type Department Care Team (Late st Contact Info) Description 11/01/[address] [facility] [address] [place] [address] [place] [address] Anthony Linares MD [address] [place] [address] [place] [address] Cigarette smoker Social History Tobacco Use Types Packs/Day Years Used Date Smoking Tobacco: Light Smoker Cigarettes Smokeless Tobacco: Never Alcohol Use Standard Drinks/Week Comments Never 0 (1 standard drink = 0.6 oz pur e alcohol) PHQ-2 Answer Date Recorded Retired PHQ-9: Brief Depression Severity Measure Score 0 08/03/2023 PHQ-2 Answer Date Recorded Retired PHQ-9: Brief Depression Severity Measure Score 0 08/03/2023 Sex and Gender Information Value Date Recorded Sex Assigned at Not on file Legal Sex Male 5:23 PM EDT Gender Identity Not on file Sexual Orientation Not on file documented as of this encounter Plan of Treatment Not on file documented as of this encounter Visit Diagnoses Diagnosis Cigarette smoker Tobacco use disorder documented in this encounter Care Teams Mother Helper Relationship Specialty Start Date End Date Anthony Linares MD [address] [place] [address] PCP - General Internal Medicine 05/04/22 documented as of this encounter
--- OUTSIDE RECORDS SUMMARY | 2025-03-26 09:38 | XMS_ITS | Encounter Summary ---
Author Organization [facility] Address [address] [place] [address] Care Team Providers Care Welding Machine Tender Name Role Phone Anthony Linares MD Primary Care Provider [phone] Reason for Referral * Consultation (Routine) - Authorized Specialty Diagnoses / Procedures Referred By Contac t Referred To Contact Nephrology Diagnoses Chronic renal failure, stage 3b (CMS/HCC) Anthony Linares MD [address] [place] [address] [place] [address] Phone: tel: fax: [facility] Nephrology, Bone & Mineral Metabolism [address], [address] [place] [address] Phone: tel: fax: Referral ID Status Reason Start Date Expiration Date Visits Requested Visits Authorized [id number] Authorized Specialty Services Required 4 02/08/2026 1 1 Encounter Details Date Type Department Care Team (Late st Contact Info) Description 08/09/2024 Community [facility] [address] [place] [address] Anthony Linares MD [address] [place] [address] [place] [address] Chronic renal failure, stage 3b (CMS/HCC) (Primary Dx) Social History Tobacco Use Types Packs/Day Years Used Date Smoking Tobacco: Every Day Cigarettes Smokeless Tobacco: Never Alcohol Use Standard Drinks/Week Comments Not Currently 0 (1 standard drink = 0.6 oz [...] Description 03/30/2025 10:00 AM EDT Office Visit [facility] [address] [place] [address] Zoey Downing, ROOM SERVICE BELLHOP [address] [facility] [address] [place] [address] 06/12/2025 11:20 AM EDT Office Visit [facility]ology [address] [place] [address] (1), Bobo Tian Fellow Scheduled Referrals Name Type Priority Associated Diagnoses Order Schedule Ambulatory referral to Nephrology Outpatient Referral Routine Chronic renal failure, stage 3b (CMS/HCC) Expected: 09/09/2024, Expires: 02/07/2026 documented as of this encounter Visit Diagnoses Diagnosis Chronic renal failure, stage 3b (CMS/HCC)- Primary documented in this encounter Additional Health Concerns Assessment Noted Time A fall risk assessment has been complete d for the patient 09/21/2023 11:44 AM EST A Body Mass Index follow-up plan has been documented for the patient 03/21/2024 12:05 PM EDT documented as of this encounter Care Teams Welding Machine Tender Relationship Specialty Start Date End Date Anthony Linares MD [address] [place] [address] [place] [address] PCP - General 01/03/21 documented as of this encounter
--- OUTSIDE RECORDS SUMMARY | 2025-03-26 09:38 | XMS_ITS | Encounter Summary ---
Author Organization [facility] Address [address] [place] [address] Care Team Providers Care Deputy Juvenile Officer Name Role Phone Anthony Linares MD Primary Care Provider [phone] Reason for Visit * Reason Comments Med Refill Encounter Details Date Type Department Care Team ([facility] Contact Info) Description 02/09/2021 [facility]ill [facility] [address] [place] [address] Viviane Avina, SEED CLEANER [address] [facility] [address] [place] [address] Social History Tobacco Use Types [...] Encounters Date Type Department Care Team (Late Contact Info) Description 03/30/2025 10:00 AM EDT Office Visit [facility] [address] [place] [address] Zoey Downing, SEED CLEANER [address] [facility] [address] [place] [address] 06/12/2025 11:20 AM EDT [facility] [address] [place] [address] (1), Bobo Tian Fellow documented as of this encounter Visit Diagnoses Not on filedocumented in this encounter Care Teams Deputy Juvenile Officer Relationship Specialty Start Date End Date Anthony Linares MD [address] [place] [address] PCP - General 01/03/21 documented as of this encounter
--- OUTSIDE RECORDS SUMMARY | 2025-03-26 09:38 | XMS_ITS | Encounter Summary ---
Author Organization Healthcare Address [address] [place] [address] Care Team Providers Care Wet Suit Gluer Name Role Phone Anthony Linares MD Primary Care Provider [phone] Reason for Visit * Reason Comments Med Refill Encounter Details Date Type Department Care Team (Late st Contact Info) Description 09/11/2021 Refill [facility] [address] [place] [address] Viviane Avina, RESEARCH PHYSICIST [address] [facility] [address] [place] [address] Hypertriglyceridemia Social History Tobacco Use Types Packs/Day Years Used Date Smoking Tobacco: Former Smokeless Tobacco: Never Alcohol Use Standard Drinks/Week [...] Description 03/30/2025 10:00 AM EDT Office Visit [facility] [address] [place] [address] Zoey Downing, RESEARCH PHYSICIST [address] [facility] [address] [place] [address] 06/12/2025 11:20 AM EDT Office Visit [facility] Endocrinology [address] [place] [address] (1), Bobo Tian Fellow documented as of this encounter Visit Diagnoses Diagnosis Hypertriglyceridemia Pure hyperglyceridemia documented in this encounter Care Teams Wet Suit Gluer Relationship Specialty Start Date End Date Anthony Linares MD [address] [place] [address] PCP - General 01/03/21 documented as of this encounter
--- OUTSIDE RECORDS SUMMARY | 2025-03-26 09:38 | XMS_ITS | Encounter Summary ---
Author Organization [facility] Address [address] [place] [address] Care Team Providers Care Supervisor Frame Sample And Pattern Name Role Phone Anthony Linares MD Primary Care Provider [phone] Encounter Details Date Type Department Care Team (Late st Contact Info) Description 02/06/2025 Results Follow-Up [facility] PRIMARY [facility] [address] [place] [address] Anthony Linares MD [address] [place] [address] [place] [address] Social History Tobacco Use Types Packs/Day Years [...] on file documented as of this encounter Miscellaneous Notes * Telephone Encounter - Joseline Lee MA - 02/06/2025 4:54 PM EDT Spoke to patient regarding labs from 02/05 and he had no questions or concerns. documented in this encounter Plan of Treatment Not on file documented as of this encounter Visit Diagnoses Not on filedocumented in this encounter Care Teams Supervisor Frame Sample And Pattern Relationship Specialty Start Date End Date Anthony Linares MD [address] [place] [address] PCP - General Internal Medicine 05/04/22 documented as of this encounter
--- OUTSIDE RECORDS SUMMARY | 2025-03-26 09:38 | XMS_ITS | Encounter Summary ---
Author Organization [facility] Address [address] [place] [address] Care Team Providers Care Sanitary Landfill Supervisor Name Role Phone Anthony Linares MD Primary Care Provider [phone] Reason for Visit * Reason Comments Med Refill Encounter Details Date Type Department Care Team (Late st Contact Info) Description 03/22/2025 Refill [facility] PRIMARY [facility] [address] [place] [address] Anthony Linares MD [address] [place] [address] [place] [address] Chronic renal failure, stage 2 (mild); Type 2 diabetes mellitus with microalbuminuria, without long-term current use of insulin Social History Tobacco Use Types Packs/Day Years [...] Visit Diagnoses Diagnosis Chronic renal failure, stage 2 (mild) Type 2 diabetes mellitus with microalbuminuria, without long-term current use of insulin documented in this encounter Care Teams Sanitary Landfill Supervisor Relationship Specialty Start Date End Date Anthony Linares MD [address] [place] [address] [place] [address] PCP - General Internal Medicine 05/04/22 documented as of this encounter
--- OUTSIDE RECORDS SUMMARY | 2025-03-26 09:38 | XMS_ITS | Encounter Summary ---
Author Organization [facility] Address [address] [place] [address] Care Team Providers Care Skip Loader Name Role Phone Anthony Linares MD Primary Care Provider Encounter Details Date Type Department Care Team (Late Contact Info) Description 03/14/2025 Telephone [facility] [address] [place] [address] Myrtle Hanks Social History Tobacco Use Types Packs/Day Years Used Date Smoking Tobacco: Every Day Cigarettes Smokeless Tobacco: Never Alcohol Use Standard Drinks/Week Comments Not Currently 0 (1 standard drink = 0.6 oz pur e alcohol) PHQ-2 Answer Date Recorded Patient Health Questionnaire-2 Score 0 11/21/2024 Sex and Gender Information Value Date Recorded Sex Assigned at Not on file Legal Sex Male 6:33 PM EDT Gender Identity Not on file Sexual Orientation Not on file documented as of this encounter Miscellaneous Notes * Telephone Encounter - Myrtle Hanks - 03/14/2025 11:04 AM EDT Pt called about getting his appointment moved to [place]. He has been r/s to March 30 with Zoey Downing. Our phone call was disconnected so I left details on pt voicemail and told them to call meback with any questions. documented in this encounter Plan of Treatment Upcoming Encounters Date Type Department Care Team (Late Contact Info) Description 03/30/2025 10:00 AM EDT Office Visit [facility] [address] [place] [address] Zoey Downing, CERTIFIED RESIDENTIAL MEDICATION AIDE [address] [facility] [address] [place] [address] 06/12/2025 11:20 AM EDT [facility] [address] [place] [address] (1), Bobo Tian Fellow documented as of this encounter Visit Diagnoses Not on filedocumented in this encounter Additional Health Concerns Assessment Noted Time A fall risk assessment has been complete d for the patient 09/21/2023 11:44 AM EST A Body Mass Index follow-up plan has been documented for the patient 11/28/2024 8:50 AM EDT documented as of this encounter Care Teams Skip Loader Relationship Specialty Start Date End Date Anthony Linares MD [address] [place] [address] PCP - General 01/03/21 documented as of this encounter
--- OUTSIDE RECORDS SUMMARY | 2025-03-26 09:38 | XMS_ITS | Encounter Summary ---
Author Organization [facility] Address [address] [place] [address] Care Team Providers Care Shop Mechanic Name Role Phone Anthony Linares MD Primary Care Provider [phone] Reason for Visit * Reason Onset Date Comments HCN - Patient Message 03/01/2025 Encounter Details Date Type Department Care Team ([facility] st Contact Info) Description 03/01/2025 Telephone [facility] Nephrology, Bone & Mineral Metabolism [address] [facility], [address] [place] [address] Seamus Dykes MD [address] [place] [address] HCN - Patient Message Social History Tobacco Use Types Packs/Day Years [...] encounter Miscellaneous Notes * Telephone Encounter - Saira Lawler - 03/02/2025 1:59 PM EDT Will notify [place] office to get him scheduled then cancel his 03/14 appt. In [place] * Telephone Encounter - Antonia Vu - 03/02/2025 1:23 PM EDT Status Update Call #3 3rd call regarding the status of the initial request. Patient mom calling back would like call back from Saira to change appointment to [place] Best contact number: Other: [phone] Optimal time of day to reach caller: ANYTIME Additional comments/information from caller: None Note: Please do not reply to this message. Follow-up communication and further actions as a result of this message need to be communicated with the patient directly, if the patient is not active onMyChart. If the patient is active on MyChart, they will receive notification of the communication/outcome via MyChart. * Telephone Encounter - Saira Nieto - 03/02/2025 8:[address] Dykes stated it may take longer to get into the [place] clinic, but pt may reschedule to that location. * Telephone Encounter - Louisa Blair - 03/01/2025 4:16 PM EDT Clinical Concern/Question Reason for Call: Patient calling to find out if he needs to be fasting for his lab work. Best contact number: [phone] Optimal time of day to reach caller: ANYTIME Additional comments/information from caller: Note: Please do not reply to this message. Follow-up communication and further actions as a result of this message need to be communicated with the patient directly, if the patient is not active onMyChart. If the patient is active on MyChart, they will receive notification of the communication/outcome via MyChart. documented in this encounter Plan of Treatment Upcoming Encounters Date Type Department Care Team (Late st Contact Info) Description 03/30/2025 10:00 AM EDT Office Visit [facility] [address] [place] [address] Zoey Downing, DATA ENTRY REPRESENTATIVE [address] [address] 06/12/2025 11:20 AM EDT Office Visit [facility] Endocrinology [facility] [place] [address] (1), Bobo Tian Fellow documented as of this encounter Visit Diagnoses Not on filedocumented in this encounter Additional Health Concerns Assessment Noted Time A fall risk assessment has been complete d for the patient 09/21/2023 11:44 AM EST A Body Mass Index follow-up plan has been documented for the patient 11/28/2024 8:50 AM EDT documented as of this encounter Care Teams Shop Mechanic Relationship Specialty Start Date End Date Anthony Linares MD [address] [place] [address] PCP - General 01/03/21 documented as of this encounter
--- OUTSIDE RECORDS SUMMARY | 2025-03-26 09:38 | XMS_ITS | Clinical Summary ---
Author Organization Healthcare Address [address] [place] [address] Care Team Providers Care Glass Mould Cleaner Name Role Phone Anthony Linares MD Primary Care Provider [phone] Allergies Active Allergy Reactions Criticality Noted Date Comments Loratadine Unknown - Patient st ates they do not know rxn details Low 03/20/2018 loopy Medications Insulin Pen Needle (BD Pen Needle Alexandra U/F) 32G X 4 MM misc USE ONE PEN NEEDLE TWICE DAILY 7 Active Lancets Ultra Thin 30G misc 2/day 9 Active glucose blood (True Metrix Blood Glucose Test) test strip USE ONE STRIP TO CHECK GLUCOSE ONE - TWO TIMES DAILY 0 Active atorvastatin (Lipitor) 40 MG tablet TAKE 1 TABLET DAILY DIRECTED. 5 Active chlorproMAZINE (Thorazine) 25 MG tablet 9 Active clopidogrel (Plavix) 75 MG tablet TAKE 1 TABLET DAILY. 9 Active methocarbamol (Robaxin) 500 MG tablet TAKE TABLET PRN 9 Active metoprolol tartrate (Lopressor) 25 MG tablet TAKE 1 TABLET DAILY. 4 Active cholecalciferol (Vitamin D-3) 50 MCG (1999 UT) capsule Take 1 capsule (2,000 Units) by mouth 1 (one) time each day. 2 Active atorvastatin (Lipitor) 80 MG tablet Take 1 tablet (80 mg) by mouth 1 (one) time each day in the evening. 2 Active losartan-hydroC HLOROthiazide (Hyzaar) 50-12.5 MG tablet Take 1 tablet by mouth 1 (one) time each day. 2 Active folic acid (Folvite) 400 MCG tablet Take 1 tablet (400 mcg) by mouth 1 (one) time each day. 3 Active empagliflozin (Jardiance) 10 MG Take 1 tablet (10 mg) by mouth 1 (one) time each day. 3 Active fenofibrate (Tricor) 145 MG tabletIndicatio ns:Hypertriglyc eridemia Take 1 tablet by mouth once daily 90 tablet 1 4 Active cyancobalamin 500 MCG tablet Take 1 tablet (500 mcg) by mouth 2 (two) times a day. 4 Active metFORMIN XR (Glucophage-XR) 500 MG 24 hr tabletIndicatio ns:Type 2 diabetes mellitus without complication, without long-term current use of insulin TAKE 2 TABLETS BY MOUTH IN THE MORNING AND 2 IN THE AFTERNOON 360 tablet 3 5 Active glyBURIDE (Diabeta) 2.5 MG tabletIndicatio ns:Type 2 diabetes mellitus without complication, without long-term current use of insulin Take 1 tablet by mouth daily with breakfast. 90 tablet 3 5 Active Active Problems Problem Noted Date Diagnosed Date Type 2 diabetes mellitus without complication Cerebral arteriosclerosis wi th history of previous cerebrovascular accident 03/19/2023 Primary hypertension 03/19/2023 Mixed hyperlipidemia 03/19/2023 Encounters Date Type Department Care Team Description 03/14/[address] [place] [address] Myrtle Hanks 03/01/2025 Telephone [facility] Nephrology, Bone & Mineral Metabolism [address] [facility], [address] [place] [address] Seamus Dykes MD HCN - Patient Message from Last 3 Months Family History Medical History Relation Name Comments Diabetes Other Relation Name Status Comments Other Social History Tobacco Use Types Packs/Day Years Used Date Smoking Tobacco: Every Day Cigarettes Smokeless Tobacco: Never Tobacco Cessation:Ready to Q uit: Not Asked; Counseling Given: Not Answered Alcohol Use Standard Drinks/Week Comments Not Currently [...] Sign Reading Time Taken Comments Blood Pressure 140/91 11/21/2024 11:15 AM EDT Pulse 71 11/21/2024 11:15 AM EDT Temperature 36.3 C (97.4 F) 06/15/2019 12:50 PM EDT Respiratory Rate - - Oxygen Saturation - - Inhaled Oxygen Concentration - - Weight 104 kg (228 lb 9.9 oz) 11/21/2024 11:15 A M EDT Height 185.4 cm (6' 1 ) 11/21/2024 11:15 AM EDT Body Mass Index 30.16 11/21/2024 11:15 AM EDT Plan of Treatment Upcoming Encounters Date Type Department Care Team (Late st Contact Info) Description 03/30/2025 10:00 AM EDT Office Visit [facility] [address] [place] [address] Zoey Downing, SLIPPER MAKER [address] [address] 06/12/2025 11:20 AM EDT Office Visit [facility] Endocrinology [address] [place] [address] (1), Bobo Tian Fellow Health Maintenance Due Date Last Done Comments [facility]-/Child/Adol SDOH Screenings 1981 [id number] Vaccine (#1) 1986 Diabetes: Dental Exam 1991 [facility]-Varicella Vaccines (1 of 2 - 13+ 2-dose series) 1994 HPV Vaccines (1 - Male 3-dose series) 1996 [facility]- SDOH Screenings 1999 [facility]-Adult SDOH Screenings 1999 [facility]-Hepatitis B Vaccines (1 of 3 - 19+ 3-dose series) 2000 [facility]-Diabetes: Hemoglobin A1C 02/20/2025 11/21/2024, 08/07/2024, 02/07/2024, Additional history exists [facility]-Influenza Vaccine (#1) 04/23/202508/07, 08/03/2023, 05/05/2022, Additional history exists [facility]-Depression Screening 11/21/2025 11/21/2024 [facility]-DTaP,Tdap,and Td Vaccines (2 - Td or Tdap) 03/02/2027 03/02/2017 [facility]-Zoster Vaccines (1 of 2) 2031 [facility]-HIV Screening Completed 09/01/2018 [facility]-Pneumococcal Vaccine: Pediatrics (0 to 5 Years) and At-Risk Patients (6 to 49 Years) Completed 11/02/2022, 03/02/2017 [facility]-Hepatitis C Screening Completed 02/01/2023 [facility]-Obesity Intervention Completed 025, 03/21/2024, 09/21/2023, Additional history exists [facility]-HIB Vaccines Aged Out No longer e ligible based on patient's age to complete this topic [facility]-Hepatitis A Vaccines Aged Out No longer eligible based on patient's age to complete this topic [facility]-IPV Vaccines Aged Out No longer e ligible based on patient's age to complete this topic [facility]-Rotavirus Vaccines Aged Out No lo nger eligible based on patient's age to complete this topic Procedures Procedure Name Priority Date/Time Associated Diagnosis Comments POCT GLYCOSYLATED HEMOGLOBIN (HGB A1C) Routine 11/21/2024 11:30 AM EDT Type 2 diabetes mellitus without complication, unspecified whether longwall shearer operator insulin use HIV 1/2 ANTIBODY/ANTIGEN SCREEN WITH REFLEX TO HIV I/II DIFFERENTIATION Routine 09/01/2018 10:53 AM EST from Last 3 Months or Most Recently Relevant to Health Maintenance Results * POCT glycosylated hemoglobin (Hb A1C) (11/21/2024 11:30 AM EDT) POCT Hemoglobin A1C 7.0 <5.7% Non-Diabe tic % [facility] Kit Lot Number [id number] [facility] Kit Expiration Date 06/22/2026 [facility] Blood Venous blood specimen / Unknown 11/21/2024 11:30 AM EDT us Bobo Tian MD POINT OF CARE TEST ENTER/EDIT ORDERABLES Final Result [facility] [address] [place] [address] * HIV 1 & 2 Antibody/Antigen Screen (09/01/2018 10:53 AM EST) HIV 1 Result NONREACTIVE Screening for HIV 1 and 2 antibodies is NONREACTIVE. No confirmatory testing is required. [facility]QUEST 09/01/2018 10:5 3 AM EST 09/01/2018 10:57 AM EST us Carlos Mortensen MD LAB BLOOD ORDERABLES Final Resu lt SUNQUEST from Last 3 Months or Most Recently Relevant to Health Maintenance Insurance Care Teams Glass Mould Cleaner Relationship Specialty Start Date End Date Anthony Linares MD [address] [place] [address] [place] [address] PCP - General 01/03/21
--- OUTSIDE RECORDS SUMMARY | 2025-03-26 09:38 | XMS_ITS | Encounter Summary ---
Author Organization [facility] Address [address] [place] [address] Care Team Providers Care Repairer Welding Systems And Equipment Name Role Phone Anthony Linares MD Primary Care Provider [phone] Reason for Visit * Reason Comments Med Refill Encounter Details Date Type Department Care Team (Late st Contact Info) Description 11/05/2023 Refill [facility] PRIMARY CARE [address] [place] [address] Anthony Linares MD [address] [place] [address] [place] [address] Cigarette smoker Social History Tobacco Use Types [...] disorder documented in this encounter Care Teams Repairer Welding Systems And Equipment Relationship Specialty Start Date End Date Anthony Linares MD [address] [place] [address] [place] [address] PCP - General Internal Medicine 05/04/22 documented as of this encounter
[2025-03-26 09:43] LABS: Microscopic, Urine URINE MICROSCOPIC (MICROSCOPIC)
[2025-03-26 10:13] LABS: Hematocrit 43.3 % (42.0-52.0); Hemoglobin 14.3 g/dL (14.1-18.0); Mean Corpuscular HGB Conc 33.0 g/dL (31.8-35.4); Mean Corpuscular Hemoglobin 31.0 pg (27.0-31.2); Mean Corpuscular Volume 93.9 fl (80-94); Nucleated Red Blood Cells % 0 %; Platelet Count 222 K/mm3 (142-424); Red Blood Count 4.61 M/mm3 (4.60-6.20); Red Cell Distribution Width-SD 49.5 fL; White Blood Count 5.5 K/mm3 (4.8-10.8)
[2025-03-26 10:48] LABS: Bilirubin,Urine Negative (Negative); Color,Urine YELLOW (Yellow); Glucose,Urine (UA) 3+ (Negative); Ketones,Urine Negative (Negative); Leukocyte Esterase,Urine Negative (Negative); PH,Urine 6.0 (5.0-8.5); Protein,Urine Negative (Negative); Specific Gravity, Urine 1.020 (1.005-1.030); Urobilinogen,Urine 0.2 EU/dl (0.2)
[2025-03-26 10:57] LABS: Albumin Level 4.7 g/dl (3.5-5.0); Anion Gap 15.0 mEq/L (5-15); Blood Urea Nitrogen 22 mg/dl (9-20); Calcium 10.2 mg/dl (8.4-10.2); Carbon Dioxide 24 mmol/L (22.0-30.0); Chloride 104 mmol/L (98-107); Creatinine,Serum 2.00 mg/dl (0.66-1.25); Estimated Glomerular Filt Rate 37 ml/min (>60); GFR (African American) 44 ML/MIN (>60); Glucose 167 mg/dl (74-100); Phosphorous 4.3 mg/dl (2.5-4.5); Potassium 4.0 mmoL/L (3.5-5.1); Sodium 139 mmol/L (136-145)
[2025-03-26 11:17] LABS: 25-OH Vitamin D, Total 43.1 ng/mL (30-100)
== END 2025-03-26 23:59 | disposition home or self-care (01) ==
LOC: LAB 09:35
PROVIDERS: PCP Pediatrics; Visit Provider Student in an Organized Health Care Education/Training Program
DX: N18.30 Chronic kidney disease, stage 3 unspecified (principal); E55.9 Vitamin D deficiency, unspecified
CPT/HCPCS: 36415; 80069; 81001; 82306; 82570; 83970; 84156; 85027